=== PATIENT | female | born 1940 | race African-American/Black ===

== ENCOUNTER 2019-07-25 19:10 | Inpatient (IN) | payer OTHER, BC ==
--- NOTE | 2019-07-25 19:35 | PDOC ---
Attending Attestation - Resident Resident Name: Shoshana Urbano - ED Attending Attestation I have performed the following: I have examined & evaluated the patient, The case was reviewed & discussed with the resident, I agree w/resident's findings & plan - HPI HPI: 07/25/19 23:07 see resident hpi - Physicial Exam PE: 07/25/19 23:07 agree with resident exam - Medical Decision Making 07/25/19 23:07 78-year-old female status post mechanical fall with right ankle pain, x-rays consistent with trimalleolar fracture Call placed to orthopedics who will see the patient in consultation Closed reduction attempted with splinting Patient neurovascularly intact prior to and post reduction We will admit to medical service due to anticoagulation status, difficulty with crutch ambulation
[2019-07-25] MEDS ORDERED: ACETAMINOPHEN 500 MG TABLET (FP) PO ONE (19:44)
--- NOTE | 2019-07-25 19:44 | PDOC ---
History of Present Illness - General Chief Complaint: Injury Stated Complaint: INJURY Time Seen by Provider: 07/25/19 19:29 History Source: Patient Exam Limitations: No Limitations - History of Present Illness Initial Comments: 07/25/19 19:53 78y F with PMH of Afib (Xarelto), HTN, CHF presenting to ED with complaints of R ankle pain after slipping down the the last step of her stairs. Patient states she was stepping on to the mat from the last step and there was a flyer on the mat and she slipped. She did not hit her head or lose consciousness but says she felt her R ankle twist. Family called EMS. She endorses pain and swelling in the R ankle. Denies numbness/tingling, weakness, knee pain, hip pain , back pain, chest pain, sob. PMD: Yovani PMH: see hpi Meds: see med rec Allergies: nkda Past History - Past Medical History Allergies/Adverse Reactions: Allergies Allergy/AdvReac Type Severity Reaction Status Date / Time No Known Allergies Allergy Verified 07/25/19 19:30 Home Medications: Ambulatory Orders Advair 250-50 Diskus 250 IH BID 07/26/19 Chlorthalidone 25 mg PO DAILY 07/26/19 Latanoprost 0.005% Eye Drops [Xalatan 0.005% Eye Drops -] 0.005 OS 07/26/19 Mirabegron [Myrbetriq] 50 mg PO DAILY 07/26/19 Nebivolol [Bystolic -] 5 mg PO DAILY 07/26/19 Pravastatin Sodium [Pravachol -] 40 mg PO DAILY 07/26/19 Risedronate Sodium 35 mg PO WEEKLY 07/26/19 Rivaroxaban [Xarelto] 15 mg PO DAILY 07/26/19 Tiotropium [place] [Spiriva] 18 mcg IH DAILY 07/26/19 Trospium Chloride 20 mg BID 07/26/19 Verapamil HCl ER [Calan Sr -] 240 mg PO DAILY 07/26/19 - Psycho Social/Smoking Cessation Hx Smoking History: Never smoked Have you smoked in the past 12 months: No Information on smoking cessation initiated: No Hx Alcohol Use: No Drug/Substance Use Hx: No Review of Systems - Review of Systems Constitutional: No: Symptoms Reported HEENTM: No: Symptoms Reported Respiratory: No: Symptoms reported Cardiac (ROS): No: Symptoms Reported ABD/GI: No: Symptoms Reported : No: Symptoms Reported Musculoskeletal: Yes: See HPI Integumentary: Yes: See HPI Neurological: No: Symptoms reported *Physical Exam - Vital Signs Last Vital Signs Temp Pulse Resp BP Pulse Ox 98.8 F 91 H 20 169/79 97 07/25/19 19:29 07/25/19 19:29 07/25/19 19:29 07/25/19 19:29 07/25/19 19:29 - Physical Exam General Appearance: Yes: Appropriately Dressed, Obese. No: Apparent Distress HEENT: positive: EOMI, HUBER, Normal ENT Inspection Neck: positive: Trachea midline, Supple. negative: Lymphadenopathy (R), Lymphadenopathy (L) Respiratory/Chest: positive: Lungs Clear, Normal Breath Sounds. negative: Crackles, Rales, Rhonchi, Stridor, Wheezing Cardiovascular: positive: Regular Rate, S1, S2, Irregular. negative: Edema, JVD , Murmur Vascular Pulses: Dorsalis-Pedis (R): 2+, Doralis-Pedis (L): 2+ Gastrointestinal/Abdominal: positive: Normal Bowel Sounds, Soft. negative: Tender Musculoskeletal: positive: Other (R medial ankle swelling/bruising, ttp medially ). negative: CVA Tenderness Extremity: positive: Normal Capillary Refill, Pelvis Stable, Swelling (R ankle) . negative: Calf Tenderness, Erythema Integumentary: positive: Normal Color, Dry, Warm Neurologic: positive: project director II-XII NML intact, Fully Oriented, Alert, Normal Mood/ Affect, Normal Response, Motor Strength 5/5 Procedures - Splinting Splint Location: Right: Ankle Pre-Proc Neuro Vasc Exam: normal Hand-Made Type: orthoglass Splint Type: Yes: Posterior, Short Leg Post-Proc Neuro Vasc Exam: normal Lito Bandage: yes Post splint xray: Yes (pending) ED Treatment Course - LABORATORY CBC & Chemistry Diagram: 07/25/19 20:55 07/25/19 20:55 Medical Decision Making - Medical Decision Making 07/25/19 21:47 78y F on Xarelto presenting for ankle pain after slipping. vitals; wnl ddx likely fracture of ankle v. sprain v. hematoma will obtain xray. Tylenol for pain. xray shows trimalleolar fracture. discussed case with ortho, if able to use crutches, can f/u outpt. if admitted, recommend hold on Xarelto pt lives alone, on Xarelto, has stairs in the home, difficulty with crutches. will admit. splint placed, see procedure note. Discharge - Discharge Information Problems reviewed: Yes Clinical Impression/Diagnosis: Trimalleolar fracture of ankle, closed Qualifiers: Encounter type: initial encounter Laterality: right Qualified Code(s): S82.851A - Displaced trimalleolar fracture of right lower leg, initial encounter for closed fracture Condition: Good - Admission Yes - Follow up/Referral - Patient Discharge Instructions - Post Discharge Activity
[2019-07-25] MEDS ORDERED: ACETAMINOPHEN 325 MG TABLET (FP) ONE (20:02)
[2019-07-25] MEDS ORDERED: morphine CARPU-JECT 4 MG/1 ML DISP.SYRIN IVPUSH ONE (20:28)
[2019-07-25] MEDS ORDERED: morphine SULFATE 4 MG/ML VIAL ONE (20:33)
[2019-07-25 21:12] LABS: EOS % 0.3 % (0-4.5); HEMATOCRIT 32.8 % (32.4-45.2); LYMPH % 17.5 % (8-40); MCH 24.5 pg (25.7-33.7); MCHC 33.4 g/dl (32.0-36.0); MEAN CELL VOLUME 73.3 fl (80-96); MEAN PLT VOLUME 7.9 fl (7.5-11.1); MONO % 9.5 % (3.8-10.2); NEUT % 71.7 % (42.8-82.8); PLATELET COUNT 264 K/MM3 (134-434); RBC 4.47 M/mm3 (3.60-5.2); RDW 14.6 % (11.6-15.6); WHITE BLOOD COUNT 8.1 K/mm3 (4.0-10.0)
[2019-07-25 21:23] LABS: INR 2.34 (0.83-1.09); PROTHROMBIN TIME (PATIENT) 27.9 SEC (9.7-13.0)
[2019-07-25 21:26] LABS: ACTIVATED PTT 41.2 SECONDS (25.2-36.5)
[2019-07-25 21:49] LABS: BILIRUBIN,TOTAL 0.7 mg/dL (0.2-1); BLOOD UREA NITROGEN 12.1 mg/dL (7-18); CALCIUM 10.3 mg/dL (8.5-10.1); CREATININE 1.1 mg/dL (0.55-1.3); POTASSIUM 3.7 mmol/L (3.5-5.1); TOT PROT 8.5 g/dl (6.4-8.2)
--- NOTE | 2019-07-25 23:34 | PN ---
Teaching Attending Note Name of Resident: Elmer Gates ATTENDING PHYSICIAN STATEMENT I saw and evaluated the patient. I reviewed the resident's note and discussed the case with the resident. I agree with the resident's findings and plan as documented. SUBJECTIVE: 78-year-old woman status post mechanical fall with right ankle pain. She reported slipping and landing on her right foot and back. Denied any pain to back. No head trauma, no LOC. X-ray performed of right ankle and showed triimalleolar fracture. Orthopedics was consulted from ER. Closed reduction was performed in emergency room with splinting. Patient was noted to be neurovascular intact prior and post reduction. OBJECTIVE: Last Vital Signs Temp Pulse Resp BP Pulse Ox 98.8 F 87 18 155/78 95 07/25/19 19:29 07/25/19 23:17 07/25/19 23:17 07/25/19 23:17 07/25/19 23:17 GENERAL: Well developed, well nourished. Awake and alert. No acute distress. HEENT: Normocephalic, atraumatic. PERRLA, EOMI. No conjunctival pallor. Sclera are non- icteric. Moist mucous membranes. Oropharynx is clear. NECK: Supple. Full ROM. No JVD. Carotid pulses 2+ and symmetric, without bruits. No thyromegaly. No lymphadenopathy. CARDIOVASCULAR: Regular rate and rhythm. No murmurs, rubs, or gallops. Distal pulses are 2+ and symmetric. PULMONARY: No evidence of respiratory distress. Lungs clear to auscultation bilaterally. No wheezing, rales or rhonchi. ABDOMINAL: Soft. Non-tender. Non-distended. No rebound or guarding. No organomegaly. Normoactive bowel sounds. MUSCULOSKELETAL Normal range of motion at all joints. No bony deformities or tenderness. No CVA tenderness. EXTREMITIES: Right lower extremity was wrapped, and mobilized. Good sensation to toes. Toes are warm to touch and good color. SKIN: Warm and dry. Normal capillary refill. No rashes. No jaundice. PSYCHIATRIC: Cooperative. Good eye contact. Appropriate mood and affect. Abnormal Lab Results 07/25/19 07/25/19 07/25/19 20:55 20:55 20:55 MCV 73.3 L MCH 24.5 L PT with INR 27.90 H INR 2.34 H PTT (Actin FS) 41.2 H Random Glucose 123 H Calcium 10.3 H Alkaline Phosphatase 150 H Total Protein 8.5 H Imaging reviewed ASSESSMENT AND PLAN: #Rt ankle triimalleolar fracture Admit to [facility] Immobilization Morphine IV for pain control PT and PTT and type and screen Orthopedics consult N.p.o. Periodic assessment of right foot pulses and sensation DVT prophylaxis with heparin subcu #Hypertensionuncontrolled Continue home dose of verapamil 240 mg p.o. daily Continue home dose Bystolic 5 mg p.o. daily Continue home dose chlorthalidone 25 mg p.o. daily #COPDcontrolled Continue home dose Spiriva daily #Dyslipidemia Continue home dose pravastatin 40 mg p.o. daily
[2019-07-26] MEDS ORDERED: SODIUM CHLORIDE 1,000 ML IV SCH (00:15)
--- NOTE | 2019-07-26 00:15 | PN ---
Physical Exam: SUBJECTIVE: Patient seen and examined OBJECTIVE: Vital Signs Period Temp Pulse Resp BP Sys/[place] Pulse Ox Last 24 Hr 98.8 F 87-91 18-20 155-169/78-79 95-97 GENERAL: The patient is awake, alert, and fully oriented, in no acute distress. HEAD: Normal with no signs of trauma. EYES: PERRL, extraocular movements intact, sclera anicteric, conjunctiva clear. No ptosis. ENT: Ears normal, nares patent, oropharynx clear without exudates, moist mucous membranes. NECK: Trachea midline, full range of motion, supple. LUNGS: Breath sounds equal, clear to auscultation bilaterally, no wheezes, no crackles, no accessory muscle use. HEART: Regular rate and rhythm, S1, S2 without murmur, rub or gallop. ABDOMEN: Soft, nontender, nondistended, normoactive bowel sounds, no guarding, no rebound, no hepatosplenomegaly, no masses. EXTREMITIES: 2+ pulses, warm, well-perfused, no edema. NEUROLOGICAL: Cranial nerves II through XII grossly intact. Normal speech, gait not observed. PSYCH: Normal mood, normal affect. SKIN: Warm, dry, normal turgor, no rashes or lesions noted Laboratory Results - last 24 hr 07/25/19 07/25/19 07/25/19 20:55 20:55 20:55 WBC 8.1 RBC 4.47 Hgb 11.0 Hct 32.8 MCV 73.3 L MCH 24.5 L MCHC 33.4 RDW 14.6 Plt Count 264 MPV 7.9 Absolute Neuts (auto) 5.8 Neutrophils % 71.7 Lymphocytes % 17.5 Monocytes % 9.5 Eosinophils % 0.3 Basophils % 1.0 Nucleated RBC % 0 PT with INR 27.90 H INR 2.34 H PTT (Actin FS) 41.2 H Sodium 138 Potassium 3.7 Chloride 98 Carbon Dioxide 29 Anion Gap 10 BUN 12.1 Creatinine 1.1 Est GFR (CKD-EPI)AfAm 56.08 Est GFR (CKD-EPI)NonAf 48.39 Random Glucose 123 H Calcium 10.3 H Total Bilirubin 0.7 AST 29 ALT 25 Alkaline Phosphatase 150 H Total Protein 8.5 H Albumin 4.0 Blood Type Antibody Screen 07/25/19 20:55 WBC RBC Hgb Hct MCV MCH MCHC RDW Plt Count MPV Absolute Neuts (auto) Neutrophils % Lymphocytes % Monocytes % Eosinophils % Basophils % Nucleated RBC % PT with INR INR PTT (Actin FS) Sodium Potassium Chloride Carbon Dioxide Anion Gap BUN Creatinine Est GFR (CKD-EPI)AfAm Est GFR (CKD-EPI)NonAf Random Glucose Calcium Total Bilirubin AST ALT Alkaline Phosphatase Total Protein Albumin Blood Type O POSITIVE Antibody Screen Negative Active Medications Generic Name Dose Route Start Last Admin Trade Name Freq PRN Reason Stop Dose Admin Sodium Chloride 1,000 mls @ 50 mls/hr 07/26/19 00:15 Normal Saline - IV 07/27/19 00:02 ASDIR [facility] ASSESSMENT/PLAN: ATTENDING PHYSICIAN STATEMENT I saw and evaluated the patient. I reviewed the resident's note and discussed the case with the resident. I agree with the resident's findings and plan as documented. SUBJECTIVE: OBJECTIVE: ASSESSMENT AND PLAN:
--- NOTE | 2019-07-26 00:28 | HP ---
CHIEF COMPLAINT: Fall PCP: Dr. Pina HISTORY OF PRESENT ILLNESS: 78 y/o F, pmh of Afib on Xeralto, HTN, HLD, CVA in 2004, CHF(pt denies), lung disease(pt does not know the dx), ectopic , cataract surgery presents s /p fall. 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 She denies hitting her head or LOC. Pt has had 2 falls in the past, 10 years ago, which she states were minor falls. Pt said she doesn't have any issues with balance or dizziness. She follows up with her telecommunicator Dr. Diaz, her cake froster Dr Carrillo, and her PCP Dr. Gant. Pt denies f/c/n/v/d, sob, chest pain, changes in vision, numbness or tingling, dizziness, abdominal pain. ER course was notable for: (1)X ray- Trimalleolar fx (2)Ortho consulted- suggested out pt f/u (3)Leg immobilized Recent Travel: denies PAST MEDICAL HISTORY: Afib on Xeralto, HTN, HLD, CVA in 2004, CHF(pt denies), lung disease(pt does not know the dx), PAST SURGICAL HISTORY: ectopic , cataract surgery Social History: Smoking:denies Alcohol:denies Drugs: denies Allergies No Known Allergies Allergy (Verified 07/25/19 19:30) HOME MEDICATIONS: Home Medications Medication Instructions Recorded Chlorthalidone 25 DAILY 07/26/19 Mirabegron [Myrbetriq] DAILY 07/26/19 Nebivolol [Bystolic -] DAILY 07/26/19 Pravastatin Sodium [Pravachol -] DAILY 07/26/19 Risedronate Sodium DAILY 07/26/19 Rivaroxaban [Xarelto] DAILY 07/26/19 Tiotropium [place] [Spiriva] DAILY 07/26/19 Trospium Chloride DAILY 07/26/19 Verapamil HCl ER [Calan Sr -] DAILY 07/26/19 REVIEW OF SYSTEMS CONSTITUTIONAL: Absent: fever, chills, diaphoresis, generalized weakness, HEENT: Absent: visual changes CARDIOVASCULAR: Absent: chest pain, syncope, palpitations, lightheadedness, RESPIRATORY: Absent: cough, shortness of breath, dyspnea with exertion, orthopnea, wheezing, GASTROINTESTINAL: Absent: abdominal pain, abdominal distension, nausea, vomiting, diarrhea, GENITOURINARY: Absent: dysuria, frequency, urgency, MUSCULOSKELETAL: Absent: back pain, neck pain ENDOCRINE: Absent: unexplained weight gain, unexplained weight loss NEUROLOGIC: Absent: headache, focal weakness or paresthesias, dizziness, bladder or bowel incontinence PHYSICAL EXAMINATION Vital Signs - 24 hr 07/25/19 07/25/19 19:29 23:17 Temperature 98.8 F Pulse Rate 91 H Pulse Rate [ 87 Right] Respiratory 20 18 Rate Blood Pressure 169/79 Blood Pressure 155/78 [Right Arm] O2 Sat by Pulse 97 95 Oximetry (%) GENERAL: Awake, alert, and fully oriented, in no acute distress. EYES: Pupils equal, round and reactive to light, extraocular movements intact, EARS, NOSE, THROAT: oropharynx clear without exudates. Moist mucous membranes. NECK: Normal range of motion, supple LUNGS: Breath sounds equal. No wheezes, and Mild-mod crackles appreciated b/l . HEART: Regular rate and irregular rhythm, normal S1 and S2 without murmur, rub or gallop. ABDOMEN: Soft, nontender, not distended, normoactive bowel sounds, no guarding, no rebound, no masses. MUSCULOSKELETAL: Normal range of motion at all joints. Right LE immobilized UPPER EXTREMITIES: 2+ pulses, warm, well-perfused. No cyanosis. No peripheral edema. LOWER EXTREMITIES: 2+ pulses, warm, well-perfused. No peripheral edema. RLE placed in cast- unable to examine. Sensation intact. NEUROLOGICAL: Cranial nerves II-XII intact. PSYCHIATRIC: Cooperative. Good eye contact. Appropriate mood and affect. Laboratory Results - last 24 hr CBC,CMP WBC 8.1 K/mm3 (4.0-10.0) 07/25/19 20:55 RBC 4.47 M/mm3 (3.60-5.2) 07/25/19 20:55 Hgb 11.0 GM/dL (10.7-15.3) 07/25/19 20:55 Hct 32.8 % (32.4-45.2) 07/25/19 20:55 MCV 73.3 fl (80-96) L 07/25/19 20:55 MCH 24.5 pg (25.7-33.7) L 07/25/19 20:55 MCHC 33.4 g/dl (32.0-36.0) 07/25/19 20:55 RDW 14.6 % (11.6-15.6) 07/25/19 20:55 Plt Count 264 K/MM3 (134-434) 07/25/19 20:55 MPV 7.9 fl (7.5-11.1) 07/25/19 20:55 Absolute Neuts (auto) 5.8 K/mm3 (1.5-8.0) 07/25/19 20:55 Neutrophils % 71.7 % (42.8-82.8) 07/25/19 20:55 Lymphocytes % 17.5 % (8-40) 07/25/19 20:55 Monocytes % 9.5 % (3.8-10.2) 07/25/19 20:55 Eosinophils % 0.3 % (0-4.5) 07/25/19 20:55 Basophils % 1.0 % (0-2.0) 07/25/19 20:55 Nucleated RBC % 0 % (0-0) 07/25/19 20:55 Sodium 138 mmol/L (136-145) 07/25/19 20:55 Potassium 3.7 mmol/L (3.5-5.1) 07/25/19 20:55 Chloride 98 mmol/L (98-107) 07/25/19 20:55 Carbon Dioxide 29 mmol/L (21-32) 07/25/19 20:55 Anion Gap 10 MMOL/L (8-16) 07/25/19 20:55 BUN 12.1 mg/dL (7-18) 07/25/19 20:55 Creatinine 1.1 mg/dL (0.55-1.3) 07/25/19 20:55 Est GFR (CKD-EPI)AfAm 56.08 07/25/19 20:55 Est GFR (CKD-EPI)NonAf 48.39 07/25/19 20:55 Random Glucose 123 mg/dL (74-106) H 07/25/19 20:55 Calcium 10.3 mg/dL (8.5-10.1) H 07/25/19 20:55 Total Bilirubin 0.7 mg/dL (0.2-1) 07/25/19 20:55 AST 29 U/L (15-37) 07/25/19 20:55 ALT 25 U/L (13-61) 07/25/19 20:55 Alkaline Phosphatase 150 U/L (45-117) H 07/25/19 20:55 Total Protein 8.5 g/dl (6.4-8.2) H 07/25/19 20:55 Albumin 4.0 g/dl (3.4-5.0) 07/25/19 20:55 ASSESSMENT/PLAN: 78 y/o F, pmh of Afib on Xeralto, HTN, HLD, CVA in 2004, CHF(pt denies), lung disease(pt does not know the dx), ectopic , cataract surgery presents s /p fall with right leg pain 10/25 #Right ankle triimalleolar fracture X-ray evident for this finding Pt admitted to [facility] Immobilization- leg in cast Orthopedics consult- recom out pt management. Hold Xarelto. Morphine IV for pain control-ordered PT and PTT and type and screen- ordered Regular assessment of right foot pulses and sensation Pt NPO after Midnight #A-fib Hold xarelto consider cardio consult #HTN cont home meds-verapamil, bystolic, chlorthalidone BP now 169/79 #CVA Hold xarelto #CHF consider ECHO in am Per pt, last ECHO was normal #Lung disease consider Xray contact Dr. Carrillo- cake froster- [facility] #DVT ppx heparin sq FEN IVF- NS at 83 monitor lytes NPO after Midnight except for PO meds Dispo: f/u labs, dvt ppx, pain control, Hold xarelto Visit type - Emergency Visit Emergency Visit: Yes ED Registration Date: 07/25/19 Care time: The patient presented to the Emergency Department on the above date and was hospitalized for further evaluation of their emergent condition. - New Patient This patient is new to me today: Yes Date on this admission: 07/29/19 - Critical Care Critical Care patient: No ATTENDING PHYSICIAN STATEMENT I saw and evaluated the patient. I reviewed the resident's note and discussed the case with the resident. I agree with the resident's findings and plan as documented. SUBJECTIVE: OBJECTIVE: ASSESSMENT AND PLAN:
[2019-07-26] MEDS ORDERED: MORPHINE SULFATE 2 MG/ML VIAL IVPUSH PRN ×3 (00:29→10:23)
[2019-07-26] MEDS ORDERED: HEPARIN NA (PORCINE) 5,000 UNITS/ML 1ML VIAL SQ SCH (06:00)
[2019-07-26 07:34] LABS: HEMATOCRIT 31.4 % (32.4-45.2); HEMOGLOBIN 10.2 GM/dL (10.7-15.3); MCH 23.5 pg (25.7-33.7); MCHC 32.5 g/dl (32.0-36.0); MEAN CELL VOLUME 72.3 fl (80-96); PLATELET COUNT 247 K/MM3 (134-434); RBC 4.35 M/mm3 (3.60-5.2); RDW 14.5 % (11.6-15.6); WHITE BLOOD COUNT 6.8 K/mm3 (4.0-10.0)
[2019-07-26 07:55] LABS: INR 1.75 (0.83-1.09); PROTHROMBIN TIME (PATIENT) 20.8 SEC (9.7-13.0)
[2019-07-26 07:57] LABS: ACTIVATED PTT 38.3 SECONDS (25.2-36.5)
[2019-07-26 08:00] LABS: BLOOD UREA NITROGEN 10.3 mg/dL (7-18); CALCIUM 9.7 mg/dL (8.5-10.1); POTASSIUM 3.4 mmol/L (3.5-5.1)
[2019-07-26] MEDS ORDERED: PT OWN MED DRAWER 7, Y5N ONE (09:02)
[2019-07-26] MEDS: CHLORTHALIDONE 25 MG TABLET PO SCH (09:07)
[2019-07-26] MEDS: VERAPAMIL HCL 240 MG E.R. TABLET PO SCH (09:07)
[2019-07-26] MEDS: TIOTROPIUM BROMIDE 2.5 MCG (SPIRIVA) RESPIMAT INHALER IH SCH (09:07)
[2019-07-26] MEDS: NEBIVOLOL 5 MG TABLET (FP) PO SCH (09:07)
[2019-07-26] MEDS ORDERED: ACETAMINOPHEN 1000 MG/100 ML VIAL (NON FORMULARY) IVPB ONE ×2 (10:23→17:56)
[2019-07-26] MEDS ORDERED: POTASSIUM CHLORIDE TABS 20 MEQ TABLET.ER (FP) PO ONE (10:25)
--- NOTE | 2019-07-26 10:33 | PN ---
Progress Note (short form) - Note Progress Note: Subjective: has pain in R foot. No fever or chills. No SOB . denies LOC at time of event. took xarelto yesterday Vital Signs: Last Vital Signs Temp Pulse Resp BP Pulse Ox 98.2 F 94 H 14 141/81 94 L 07/26/19 07:40 07/26/19 07:40 07/26/19 07:40 07/26/19 07:40 07/25/19 23:56 Laboratory Results - last 24 hr 07/25/19 07/25/19 07/25/19 06:42 20:55 20:55 WBC 8.1 RBC 4.47 Hgb 11.0 Hct 32.8 MCV 73.3 L MCH 24.5 L MCHC 33.4 RDW 14.6 Plt Count 264 MPV 7.9 Absolute Neuts (auto) 5.8 Neutrophils % 71.7 Lymphocytes % 17.5 Monocytes % 9.5 Eosinophils % 0.3 Basophils % 1.0 Nucleated RBC % 0 PT with INR 27.90 H INR 2.34 H PTT (Actin FS) 41.2 H Sodium Potassium Chloride Carbon Dioxide Anion Gap BUN Creatinine Est GFR (CKD-EPI)AfAm Est GFR (CKD-EPI)NonAf Random Glucose Calcium Total Bilirubin AST ALT Alkaline Phosphatase Total Protein Albumin Blood Type O POSITIVE Antibody Screen 07/25/19 07/25/19 07/26/19 20:55 20:55 06:42 WBC 6.8 RBC 4.35 Hgb 10.2 L Hct 31.4 L MCV 72.3 L MCH 23.5 L MCHC 32.5 RDW 14.5 Plt Count 247 MPV 8.0 Absolute Neuts (auto) Neutrophils % Lymphocytes % Monocytes % Eosinophils % Basophils % Nucleated RBC % PT with INR INR PTT (Actin FS) Sodium 138 Potassium 3.7 Chloride 98 Carbon Dioxide 29 Anion Gap 10 BUN 12.1 Creatinine 1.1 Est GFR (CKD-EPI)AfAm 56.08 Est GFR (CKD-EPI)NonAf 48.39 Random Glucose 123 H Calcium 10.3 H Total Bilirubin 0.7 AST 29 ALT 25 Alkaline Phosphatase 150 H Total Protein 8.5 H Albumin 4.0 Blood Type O POSITIVE Antibody Screen Negative 07/26/19 07/26/19 06:42 06:42 WBC RBC Hgb Hct MCV MCH MCHC RDW Plt Count MPV Absolute Neuts (auto) Neutrophils % Lymphocytes % Monocytes % Eosinophils % Basophils % Nucleated RBC % PT with INR 20.80 H INR 1.75 H PTT (Actin FS) 38.3 H Sodium 138 Potassium 3.4 L Chloride 100 Carbon Dioxide 30 Anion Gap 8 BUN 10.3 Creatinine 1.0 Est GFR (CKD-EPI)AfAm 62.93 Est GFR (CKD-EPI)NonAf 54.30 Random Glucose 125 H Calcium 9.7 Total Bilirubin AST ALT Alkaline Phosphatase 139 H Total Protein Albumin Blood Type Antibody Screen Physical Exam: NAD , awake, alert and cooperative MMM, no facial droop LUngs: bibasilar crackles CV: regularly irreg . 2/6 SM at base ABd: obese, soft, NT, ND , NL BS Ext : R ankle and leg in a cast. nl sensation in R toes and nl movement of toes. DP 2+ . LLE with no edema or erythema Imaging: xrays reviewed. EKG : sinus, Q waves in inferrior leads, non specific TWI. qtc 455, L axis. No prior to compare Assessment/Plan: 78 y/o lady with h/o A fib , ILD, HTN, CVA, HLP, who presented a fter a mechanical fall and was found to have acute R distal Tib/Fib Fx . 1- Mechanical fall 2- Acute R distal Tib/Fib Fx. 3- H/o HTN 4- h/o ILD 5- Elevated R hemidiaphragm 6- H/o A fib 7- Elevated ALk phos; likely due to Fx Plan : - seen by ortho, note is pending. per RN patient will need sx but being delayed due to being on xarelto - Last dose ot xarelto 12:30 pm yesterday. she will be safe to have sx after 48 hrs of last dose. so tomorrow afternoon - Stefan-OP risk stratification: sx is not urgent. Patient has h/o A fib, but rate is controlled and she is in sinus now. she has no CP or SOB . she has no signs of acute ischemia on EKG. No signs of ACS. she has stable lung disease .She will be at low risk for stefan-op cardiac complications for this intermediate risk surgery . No further cardiac work up is indicated before the sx. - dc IVF - NPO after MN - cont inhalers - f/u with pulm as out pt for elevated hemidiaphragm and ILD - cont corge, bystolic and chlorthalidone . hold diuretics tomorrow - repeat alk phos, now and as out pt - add oxycodone - bowel regimen - SCDs on L . - SQ heparin today I confirmed her meds and updated in EMR Visit type - Emergency Visit Emergency Visit: Yes ED Registration Date: 07/25/19 Care time: The patient presented to the Emergency Department on the above date and was hospitalized for further evaluation of their emergent condition. - New Patient This patient is new to me today: No - Critical Care Critical Care patient: No
[2019-07-26] MEDS: DOCUSATE SODIUM 100 MG CAPSULE (FP) PO SCH ×2 (10:50→21:22)
[2019-07-26] MEDS: HEPARIN NA (PORCINE) 5,000 UNITS/ML 1ML VIAL SQ SCH ×2 (13:16→21:22)
--- NOTE | 2019-07-26 16:25 | CON.ORTH ---
Consult Reason for Consultation:: right ankle fx - Alcohol/Substance Use Hx Alcohol Use: No - Smoking History Smoking history: Never smoked Have you smoked in the past 12 months: No Home Medications - Allergies Allergies/Adverse Reactions: Allergies Allergy/AdvReac Type Severity Reaction Status Date / Time No Known Allergies Allergy Verified 07/25/19 19:30 - Home Medications Home Medications: Ambulatory Orders Advair 250-50 Diskus 250 IH BID 07/26/19 Chlorthalidone 25 mg PO DAILY 07/26/19 Latanoprost 0.005% Eye Drops [Xalatan 0.005% Eye Drops -] 0.005 drop OU DAILY Mirabegron [Myrbetriq] 50 mg PO DAILY 07/26/19 Nebivolol [Bystolic -] 5 mg PO DAILY 07/26/19 Pravastatin Sodium [Pravachol -] 40 mg PO DAILY 07/26/19 Risedronate Sodium 35 mg PO WEEKLY 07/26/19 Rivaroxaban [Xarelto] 15 mg PO DAILY 07/26/19 Tiotropium [place] [Spiriva] 18 mcg IH DAILY 07/26/19 Trospium Chloride 20 mg BID 07/26/19 Verapamil HCl ER [Calan Sr -] 240 mg PO DAILY 07/26/19 Physical Exam for Ortho Vital Signs: Vital Signs Temperature 98.2 F 07/26/19 14:13 Pulse Rate 76 07/26/19 14:13 Respiratory Rate 18 07/26/19 14:13 Blood Pressure 122/76 07/26/19 14:13 O2 Sat by Pulse Oximetry (%) 95 07/26/19 09:00 Labs: CBC, BMP 07/26/19 06:42 07/26/19 06:42 INR, PTT INR 1.75 (0.83-1.09) H 07/26/19 06:42 - Lower Extremity Ankle: Yes: Right, Limited ROM, Pain, Swelling, Tenderness, Other (nvi) Imaging - Results X-ray: Image Reviewed Assessment/Plan 78 y/o F, pmh of Afib on Xeralto, HTN, HLD, CVA in 2004, CHF(pt denies), lung disease(pt does not know the dx), ectopic , cataract surgery presents s /p fall. 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 She denies hitting her head or LOC. Denies any numbness or tingling. a/p right ankle trimall fx Risks and benefits were d/w pt in detail OR for right ankle ORIF Tentatively for Saturday/Saturday surgical clearance NPO after midnight d/w Dr. Nelson
[2019-07-26] MEDS: oxyCODONE HCL 5 MG TABLET PO PRN (16:54)
[2019-07-26] MEDS ORDERED: RIVAROXABAN 15 MG TABLET PO SCH (18:00)
[2019-07-26] MEDS: ATORVASTATIN CA 10 MG TABLET (FP) PO SCH (21:22)
[2019-07-26] MEDS: FLUTICASONE/SALMETEROL 100 MCG/50 MCG DISKUS IH SCH (21:45)
[2019-07-27 07:48] LABS: INR 1.31 (0.83-1.09); PROTHROMBIN TIME (PATIENT) 15.5 SEC (9.7-13.0)
[2019-07-27] MEDS: oxyCODONE HCL 5 MG TABLET PO PRN ×2 (07:48→22:07)
--- NOTE | 2019-07-27 08:26 | PN ---
Progress Note (short form) - Note Progress Note: Ortho Pt seen and examined s/p right ankle fx Selected Entries 07/27/19 05:48 Temperature 98.7 F Pulse Rate 81 Respiratory 21 H Rate Blood Pressure 117/65 Laboratory Tests 07/27/19 06:45 PT with INR 15.50 H INR 1.31 H splint intact, nvi a/p Risks and benefits were d/w pt in detail OR tomorrow for right ankle orif NPO after midnight hold heparin after 10 pm d/w Dr. Nelson
--- NOTE | 2019-07-27 10:18 | EKG ---
Test Reason : Blood Pressure : / mmHG Vent. Rate : 093 BPM Atrial Rate : 093 BPM P-R Int : 154 ms QRS Dur : 100 ms QT Int : 366 ms P-R-T Axes : 018 -09 -10 degrees QTc Int : 455 ms SINUS RHYTHM WITH PREMATURE SUPRAVENTRICULAR COMPLEXES AND WITH OCCASIONAL PREMATURE VENTRICULAR COMPLEXES INFERIOR INFARCT , AGE UNDETERMINED ABNORMAL ECG WHEN COMPARED WITH ECG OF 11-DEC-2008 22:51, PREMATURE VENTRICULAR COMPLEXES ARE NOW PRESENT PREMATURE SUPRAVENTRICULAR COMPLEXES ARE NOW PRESENT VENT. RATE HAS INCREASED T WAVE VARIATION Confirmed by KRYSTLE ONEAL MD ([id number]) on 07/27/2019 10:18:03 AM Referred By: Confirmed By:KRYSTLE ONEAL MD
[2019-07-27] MEDS: NEBIVOLOL 5 MG TABLET (FP) PO SCH (10:24)
[2019-07-27] MEDS: FLUTICASONE/SALMETEROL 100 MCG/50 MCG DISKUS IH SCH ×2 (10:24→22:10)
[2019-07-27] MEDS: VERAPAMIL HCL 240 MG E.R. TABLET PO SCH (10:24)
[2019-07-27] MEDS: CHLORTHALIDONE 25 MG TABLET PO SCH (10:25)
[2019-07-27] MEDS: DOCUSATE SODIUM 100 MG CAPSULE (FP) PO SCH ×2 (10:25→22:09)
[2019-07-27] MEDS: TIOTROPIUM BROMIDE 2.5 MCG (SPIRIVA) RESPIMAT INHALER IH SCH (10:26)
[2019-07-27] MEDS ORDERED: HEPARIN NA (PORCINE) 5,000 UNITS/ML 1ML VIAL SQ ONE ×2 (14:30→22:00)
[2019-07-27] MEDS ORDERED: ACETAMINOPHEN 1000 MG/100 ML VIAL (NON FORMULARY) IVPB ONE (14:46)
--- NOTE | 2019-07-27 15:20 | PN ---
Teaching Attending Note Name of Resident: Leanne Bethea ATTENDING PHYSICIAN STATEMENT I saw and evaluated the patient. I reviewed the resident's note and discussed the case with the resident. I agree with the resident's findings and plan as documented. SUBJECTIVE: No fever or chills. R ankle pain is controlled with oxy and morphine OBJECTIVE: NAD , awake, alert and cooperative MMM, no facial droop LUngs: CTAB today CV: regularly irreg . 2/6 SM at base ABd: obese, soft, NT, ND , NL BS Ext: R ankle and leg in a cast. nl sensation in R toes and nl movement of toes. DP 2+ . LLE with no edema or erythema Assessment/Plan: 78 y/o lady with h/o A fib , ILD, HTN, CVA, HLP, who presented a fter a mechanical fall and was found to have acute R distal Tib/Fib Fx . 1- Mechanical fall 2- Acute R distal Tib/Fib Fx. 3- H/o HTN 4- h/o ILD 5- Elevated R hemidiaphragm 6- H/o A fib 7- Elevated ALk phos; likely due to Fx Plan : - To OR tomorrow - Pre-Op risk stratification per yesterday's note - NPo after MN - cont morphine and oxy - heaprin sq today - INR in am - xarelto is out of system by now - cont other home meds - bowel regimen - f/u with pulm as out pt for elevated hemidiaphragm and ILD Scds on L side
--- NOTE | 2019-07-27 16:53 | PN ---
Physical Exam: SUBJECTIVE: Patient seen and examined 78 y/o F, pmh of Afib on Xeralto, HTN, HLD, CVA in 2004, CHF(pt denies), lung disease(pt does not know the dx), ectopic , cataract surgery presents s /p fall admitted for right ankle fx. Pt is asymptomatic, afebrile, w/o any issues or c/o. Pt has moderate pain on her leg but otherwise stable. No overnight events. Denies f/c/n/v, chest pain, sob. OBJECTIVE: Vital Signs Last Vital Signs Temp Pulse Resp BP Pulse Ox 98.1 F 74 20 117/68 96 07/27/19 14:33 07/27/19 14:33 07/27/19 10:00 07/27/19 14:33 07/27/19 09:00 GENERAL: Awake, alert, and fully oriented, in no acute distress. EYES: Pupils equal, round and reactive to light, extraocular movements intact, EARS, NOSE, THROAT: oropharynx clear without exudates. Moist mucous membranes. NECK: Normal range of motion, supple LUNGS: Breath sounds equal. No wheezes, and Mild-mod crackles appreciated b/l . HEART: Regular rate and irregular rhythm, normal S1 and S2 without murmur, rub or gallop. ABDOMEN: Soft, nontender, not distended, normoactive bowel sounds, no guarding, no rebound, no masses. MUSCULOSKELETAL: Normal range of motion at all joints. Right LE immobilized UPPER EXTREMITIES: 2+ pulses, warm, well-perfused. No cyanosis. No peripheral edema. LOWER EXTREMITIES: 2+ pulses, warm, well-perfused. No peripheral edema. RLE placed in cast- unable to examine. Sensation intact. NEUROLOGICAL: Cranial nerves II-XII intact. PSYCHIATRIC: Cooperative. Good eye contact. Appropriate mood and affect. Laboratory Results - last 24 hr CBC,CMP WBC 6.8 K/mm3 (4.0-10.0) 07/26/19 06:42 RBC 4.35 M/mm3 (3.60-5.2) 07/26/19 06:42 Hgb 10.2 GM/dL (10.7-15.3) L 07/26/19 06:42 Hct 31.4 % (32.4-45.2) L 07/26/19 06:42 MCV 72.3 fl (80-96) L 07/26/19 06:42 MCH 23.5 pg (25.7-33.7) L 07/26/19 06:42 MCHC 32.5 g/dl (32.0-36.0) 07/26/19 06:42 RDW 14.5 % (11.6-15.6) 07/26/19 06:42 Plt Count 247 K/MM3 (134-434) 07/26/19 06:42 MPV 8.0 fl (7.5-11.1) 07/26/19 06:42 Absolute Neuts (auto) 5.8 K/mm3 (1.5-8.0) 07/25/19 20:55 Neutrophils % 71.7 % (42.8-82.8) 07/25/19 20:55 Lymphocytes % 17.5 % (8-40) 07/25/19 20:55 Monocytes % 9.5 % (3.8-10.2) 07/25/19 20:55 Eosinophils % 0.3 % (0-4.5) 07/25/19 20:55 Basophils % 1.0 % (0-2.0) 07/25/19 20:55 Nucleated RBC % 0 % (0-0) 07/25/19 20:55 Sodium 138 mmol/L (136-145) 07/26/19 06:42 Potassium 3.4 mmol/L (3.5-5.1) L 07/26/19 06:42 Chloride 100 mmol/L (98-107) 07/26/19 06:42 Carbon Dioxide 30 mmol/L (21-32) 07/26/19 06:42 Anion Gap 8 MMOL/L (8-16) 07/26/19 06:42 BUN 10.3 mg/dL (7-18) 07/26/19 06:42 Creatinine 1.0 mg/dL (0.55-1.3) 07/26/19 06:42 Est GFR (CKD-EPI)AfAm 62.93 07/26/19 06:42 Est GFR (CKD-EPI)NonAf 54.30 07/26/19 06:42 Random Glucose 125 mg/dL (74-106) H 07/26/19 06:42 Calcium 9.7 mg/dL (8.5-10.1) 07/26/19 06:42 Total Bilirubin 0.7 mg/dL (0.2-1) 07/25/19 20:55 AST 29 U/L (15-37) 07/25/19 20:55 ALT 25 U/L (13-61) 07/25/19 20:55 Alkaline Phosphatase 139 U/L (45-117) H 07/26/19 06:42 Total Protein 8.5 g/dl (6.4-8.2) H 07/25/19 20:55 Albumin 4.0 g/dl (3.4-5.0) 07/25/19 20:55 Active Medications Current Medications Atorvastatin Calcium (Lipitor -) 10 mg PO HS [facility] Last Admin: 07/26/19 21:22 Dose: 10 mg Chlorthalidone (Hygroton -) 25 mg PO DAILY [facility] Last Admin: 07/27/19 10:25 Dose: 25 mg Docusate Sodium (Colace -) 100 mg PO BID [facility] Last Admin: 07/27/19 10:25 Dose: 100 mg Heparin Sodium (Porcine) (Heparin -) 5,000 unit SQ ONCE ONE Stop: 07/27/19 22:01 Morphine Sulfate (Morphine Sulfate) 2 mg IVPUSH Q4H PRN PRN Reason: PAIN LEVEL 6-10 Nebivolol (Bystolic -) 5 mg PO DAILY [facility] Last Admin: 07/27/19 10:24 Dose: 5 mg Oxycodone HCl (Roxicodone -) 5 mg PO Q4H PRN PRN Reason: PAIN LEVEL 1-5 Last Admin: 07/27/19 07:48 Dose: 5 mg Fluticasone/Salmeterol (Advair 100mcg/50mcg -) 1 puff IH BID [facility] Last Admin: 07/27/19 10:24 Dose: 1 inh Tiotropium [place] (Spiriva Respimat) 2 puff IH DAILY [facility] Last Admin: 07/27/19 10:26 Dose: 2 puff Verapamil HCl (Calan Sr -) 240 mg PO DAILY [facility] Last Admin: 07/27/19 10:24 Dose: 240 mg Home Medications Medication Instructions Recorded Advair 250-50 Diskus 250 IH BID 07/26/19 Chlorthalidone 25 mg PO DAILY 07/26/19 Latanoprost 0.005% Eye Drops 0.005 drop OU DAILY 07/26/19 [Xalatan 0.005% Eye Drops -] Mirabegron [Myrbetriq] 50 mg PO DAILY 07/26/19 Nebivolol [Bystolic -] 5 mg PO DAILY 07/26/19 Pravastatin Sodium [Pravachol -] 40 mg PO DAILY 07/26/19 Risedronate Sodium 35 mg PO WEEKLY 07/26/19 Rivaroxaban [Xarelto] 15 mg PO DAILY 07/26/19 Tiotropium [place] [Spiriva] 18 mcg IH DAILY 07/26/19 Trospium Chloride 20 mg BID 07/26/19 Verapamil HCl ER [Calan Sr -] 240 mg PO DAILY 07/26/19 ASSESSMENT/PLAN: 78 y/o F, pmh of Afib on Xeralto, HTN, HLD, CVA in 2004, CHF(pt denies), lung disease(pt does not know the dx), ectopic , cataract surgery presents s /p fall. #Right ankle triimalleolar fracture X-ray evident for this finding Pt admitted to [facility] Immobilization- leg in cast Orthopedics consult- recom out pt management. Hold Xarelto. Pt going to surgery tomorrow- Right ankle ORIF Medicine cleared pt for surgery Cardiology clearance- pending Morphine IV and oxy for pain PT and PTT, INR- 1.31 today- r/p INR in the am type and screen- O positive Regular assessment of right foot pulses and sensation Pt NPO after Midnight Bowel regime #A-fib Hold xarelto #HTN cont home meds-verapamil, bystolic, chlorthalidone BP now 169/79 #CVA Hold xarelto #CHF consider ECHO Per pt, last ECHO was normal #Lung disease consider Xray contact Dr. Carrillo- health policy analyst- [facility] #DVT ppx heparin sq for now FEN monitor lytes NPO after Midnight except for PO meds Dispo: f/u inr, pain control, Hold xarelto, OR in am Visit type - Emergency Visit Emergency Visit: Yes ED Registration Date: 07/25/19 Care time: The patient presented to the Emergency Department on the above date and was hospitalized for further evaluation of their emergent condition. - New Patient This patient is new to me today: Yes Date on this admission: 07/28/19 - Critical Care Critical Care patient: No - Discharge Referral Referred to [facility] No ATTENDING PHYSICIAN STATEMENT I saw and evaluated the patient. I reviewed the resident's note and discussed the case with the resident. I agree with the resident's findings and plan as documented. SUBJECTIVE: OBJECTIVE: ASSESSMENT AND PLAN:
--- NOTE | 2019-07-27 17:19 | CON.CARD ---
Consult Consult Specialty:: Cardiology Referred by:: Hospitalist Reason for Consultation:: Cardiac evaluation and clearance - History of Present Illness Chief Complaint: Post fall resulting in right ankle fracture History of Present Illness: Patient is a 78 year old female with underlying history of HTN, hypercholesterolemia, CVA (2004) and PAF on DOAC/Xarelto who presented over the weekend after a fall resulting in right ankle fracture. She slopped and fell on the ground. She denies LOC. She denies hitting her head. Currently, she denies chest pain, shortness of breath or palpitations. She denies paroxysmal nocturnal dyspnea or orthopnea. She denies fever or chills. She denies nausea, vomiting, diarrhea or abdominal pain. She denies headache or lightheadedness. Xarelto has been stopped. She follows with Sampson Diaz MD in [place] who is an Electric Spot Welder/Senior Recruiter. 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 Cardio/Vascular: Yes: AFIB, HTN, Hyperlipdemia Reproductive: Yes: Ectopic Endocrine: No: Diabetes Mellitus - Past Surgical History Past Surgical History: Yes: Hernia Repair (5 times), Oopherectomy - Alcohol/Substance Use Hx Alcohol Use: No - Smoking History Smoking history: Never smoked Have you smoked in the past 12 months: No Home Medications - Allergies Allergies/Adverse Reactions: Allergies Allergy/AdvReac Type Severity Reaction Status Date / Time No Known Allergies Allergy Verified 07/25/19 19:30 - Home Medications Home Medications: Ambulatory Orders Advair 250-50 Diskus 250 IH BID 07/26/19 Chlorthalidone 25 mg PO DAILY 07/26/19 Latanoprost 0.005% Eye Drops [Xalatan 0.005% Eye Drops -] 0.005 drop OU DAILY Mirabegron [Myrbetriq] 50 mg PO DAILY 07/26/19 Nebivolol [Bystolic -] 5 mg PO DAILY 07/26/19 Pravastatin Sodium [Pravachol -] 40 mg PO DAILY 07/26/19 Risedronate Sodium 35 mg PO WEEKLY 07/26/19 Rivaroxaban [Xarelto] 15 mg PO DAILY 07/26/19 Tiotropium [place] [Spiriva] 18 mcg IH DAILY 07/26/19 Trospium Chloride 20 mg BID 07/26/19 Verapamil HCl ER [Calan Sr -] 240 mg PO DAILY 07/26/19 Family Medical History Family History: Denies Review of Systems - Review of Systems Constitutional: denies: Chills, Fever Cardiovascular: denies: Chest Pain, Palpitations, Shortness of Breath Respiratory: denies: Cough, Hemoptysis, Orthopnea, PND, SOB, SOB on Exertion, Wheezing Gastrointestinal: denies: Abdominal Pain, Constipation, Diarrhea, Melena, Nausea , Rectal Bleeding, Vomiting Genitourinary: denies: Dysuria, Hematuria Musculoskeletal: reports: Joint Pain. denies: Back Pain Neurological: denies: Dizziness, Headache, Seizure, Syncope Vital Signs: Vital Signs Temperature 98.1 F 07/27/19 14:33 Pulse Rate 74 07/27/19 14:33 Respiratory Rate 20 07/27/19 10:00 Blood Pressure 117/68 07/27/19 14:33 O2 Sat by Pulse Oximetry (%) 96 07/27/19 09:00 Eyes: Yes: PERRL HENT: Yes: Atraumatic Neck: Yes: Supple Respiratory: Yes: CTA Bilaterally Gastrointestinal: Yes: Normal Bowel Sounds, Soft. No: Tenderness Cardiovascular: Yes: Regular Rate and Rhythm JVD: No PMI: Non-Displaced Heart Sounds: Yes: S1, S2 Murmur: No: Systolic Murmur Extremities: Yes: Other (Cast on right ankle up to knee) Edema: No - Other Data Labs, Other Data: CBC, BMP 07/26/19 06:42 07/26/19 06:42 INR, PTT INR 1.31 (0.83-1.09) H 07/27/19 06:45 Laboratory Results - last 24 hr 07/27/19 07/27/19 06:45 13:05 PT with INR 15.50 H INR 1.31 H Blood Type O POSITIVE Antibody Screen Negative Sinus rhythm, APC, PVC, cannot rule out inferior infarct old Imaging - Results Chest X-ray: Report Reviewed (Atelectasis left base) X-ray: Report Reviewed (ankle Xray) EKG: Report Reviewed Problem List - Problems (1) HTN (hypertension) Code(s): I10 - ESSENTIAL (PRIMARY) HYPERTENSION (2) Hypercholesterolemia Code(s): E78.00 - PURE HYPERCHOLESTEROLEMIA, UNSPECIFIED (3) CVA (cerebral vascular accident) Code(s): I63.9 - CEREBRAL INFARCTION, UNSPECIFIED (4) PAF (paroxysmal atrial fibrillation) Code(s): I48.0 - PAROXYSMAL ATRIAL FIBRILLATION (5) Trimalleolar fracture of ankle, closed Code(s): S82.853A - DISPLACED TRIMALLEOLAR FRACTURE OF UNSP LOWER LEG, INIT Qualifiers: Encounter type: initial encounter Laterality: right Qualified Code(s): S82.851A - Displaced trimalleolar fracture of right lower leg, initial encounter for closed fracture Assessment/Plan 1. Mechanical fall resulting in right ankle fracture 2. HTN 3. Hypercholesterolemia 4. PAF currently in sinus rhythm 5. History of CVA PLAN: 1. No absolute contraindication for surgery in view of absence of ischemic symptoms, decompensated congestive heart failure or malignant arrhythmia 2. Xarelto has been held in preparation for surgery , but should be restarted afterwards 3. Continue current cardiac medications including Bystolic 5 mg QD, Chlorthalidone 25 mg QD and Verapamil 240 mg QD. Continue Lipitor 10 mg QHS Follow up with Dr. Sampson Diaz upon discharge Thank you for consultation request Shine Hodge MD
[2019-07-27] MEDS: ATORVASTATIN CA 10 MG TABLET (FP) PO SCH (22:09)
[2019-07-28 08:00] LABS: BASO % 0.8 % (0-2.0); EOS % 1.1 % (0-4.5); HEMOGLOBIN 9.7 GM/dL (10.7-15.3); LYMPH % 35.4 % (8-40); MCH 23.3 pg (25.7-33.7); MCHC 32.2 g/dl (32.0-36.0); MEAN CELL VOLUME 72.3 fl (80-96); MEAN PLT VOLUME 8.1 fl (7.5-11.1); MONO % 13.5 % (3.8-10.2); NEUT % 49.2 % (42.8-82.8); PLATELET COUNT 233 K/MM3 (134-434); RBC 4.15 M/mm3 (3.60-5.2); RDW 14.2 % (11.6-15.6)
[2019-07-28 08:07] LABS: INR 1.17 (0.83-1.09); PROTHROMBIN TIME (PATIENT) 13.8 SEC (9.7-13.0)
[2019-07-28 08:23] LABS: ALBUMIN 3.4 g/dl (3.4-5.0); BILIRUBIN,TOTAL 0.7 mg/dL (0.2-1); BLOOD UREA NITROGEN 13.4 mg/dL (7-18); POTASSIUM 3.7 mmol/L (3.5-5.1); TOT PROT 7.6 g/dl (6.4-8.2)
[2019-07-28] MEDS ORDERED: PT OWN MED DRAWER 7, Y5N ONE (10:19)
[2019-07-28] MEDS: FLUTICASONE/SALMETEROL 100 MCG/50 MCG DISKUS IH SCH ×2 (10:30→21:07)
[2019-07-28] MEDS: NEBIVOLOL 5 MG TABLET (FP) PO SCH (10:31)
[2019-07-28] MEDS: VERAPAMIL HCL 240 MG E.R. TABLET PO SCH (10:32)
[2019-07-28] MEDS: DOCUSATE SODIUM 100 MG CAPSULE (FP) PO SCH ×2 (10:32→21:05)
[2019-07-28] MEDS: CHLORTHALIDONE 25 MG TABLET PO SCH (10:32)
[2019-07-28] MEDS: TIOTROPIUM BROMIDE 2.5 MCG (SPIRIVA) RESPIMAT INHALER IH SCH (10:32)
--- NOTE | 2019-07-28 11:47 | PN ---
Progress Note, Physician Chief Complaint: Not in distress History of Present Illness: Patient was seen and examined. Awake and alert. Chart was reviewed Denies chest pain, SOB or palpitations - Current Medication List Current Medications: Active Medications Atorvastatin Calcium (Lipitor -) 10 mg PO HS [facility] Last Admin: 07/27/19 22:09 Dose: 10 mg Chlorthalidone (Hygroton -) 25 mg PO DAILY [facility] Last Admin: 07/28/19 10:32 Dose: Not Given Docusate Sodium (Colace -) 100 mg PO BID [facility] Last Admin: 07/28/19 10:32 Dose: Not Given Morphine Sulfate (Morphine Sulfate) 2 mg IVPUSH Q4H PRN PRN Reason: PAIN LEVEL 6-10 Nebivolol (Bystolic -) 5 mg PO DAILY [facility] Last Admin: 07/28/19 10:31 Dose: 5 mg Oxycodone HCl (Roxicodone -) 5 mg PO Q4H PRN PRN Reason: PAIN LEVEL 1-5 Last Admin: 07/27/19 22:07 Dose: 5 mg Fluticasone/Salmeterol (Advair 100mcg/50mcg -) 1 puff IH BID [facility] Last Admin: 07/28/19 10:30 Dose: 1 inh Tiotropium [place] (Spiriva Respimat) 2 puff IH DAILY [facility] Last Admin: 07/28/19 10:32 Dose: 2 puff Verapamil HCl (Calan Sr -) 240 mg PO DAILY [facility] Last Admin: 07/28/19 10:32 Dose: 240 mg - Objective Vital Signs: Vital Signs Temperature 98.7 F 07/28/19 09:30 Pulse Rate 100 H 07/28/19 10:00 Respiratory Rate 20 07/28/19 10:00 Blood Pressure 141/86 07/28/19 10:00 O2 Sat by Pulse Oximetry (%) 97 07/28/19 09:00 Eyes: Yes: PERRL HENT: Yes: Atraumatic Neck: Yes: Supple Cardiovascular: Yes: Regular Rate and Rhythm, S1, S2 Respiratory: Yes: CTA Bilaterally Gastrointestinal: Yes: Normal Bowel Sounds, Soft. No: Tenderness Extremities: Yes: Other (cast on right calf) Edema: No Labs: CBC, BMP 07/28/19 06:45 07/28/19 06:45 INR, PTT INR 1.17 (0.83-1.09) H 07/28/19 06:45 Problem List - Problems (1) HTN (hypertension) Code(s): I10 - ESSENTIAL (PRIMARY) HYPERTENSION (2) Hypercholesterolemia Code(s): E78.00 - PURE HYPERCHOLESTEROLEMIA, UNSPECIFIED (3) CVA (cerebral vascular accident) Code(s): I63.9 - CEREBRAL INFARCTION, UNSPECIFIED (4) PAF (paroxysmal atrial fibrillation) Code(s): I48.0 - PAROXYSMAL ATRIAL FIBRILLATION (5) Trimalleolar fracture of ankle, closed Code(s): S82.853A - DISPLACED TRIMALLEOLAR FRACTURE OF UNSP LOWER LEG, INIT Qualifiers: Encounter type: initial encounter Laterality: right Qualified Code(s): S82.851A - Displaced trimalleolar fracture of right lower leg, initial encounter for closed fracture Assessment/Plan 1. Mechanical fall resulting in right ankle fracture 2. HTN 3. Hypercholesterolemia 4. PAF currently in sinus rhythm 5. History of CVA PLAN: 1. No absolute contraindication for surgery in view of absence of ischemic symptoms, decompensated congestive heart failure or malignant arrhythmia 2. Xarelto has been held in preparation for surgery. Restart Xarelto once done with surgery 3. Continue current cardiac medications including Bystolic 5 mg QD, Chlorthalidone 25 mg QD and Verapamil 240 mg QD. Continue Lipitor 10 mg QHS Follow up with Dr. Sampson Diaz upon discharge Shine Hodge MD
[2019-07-28] MEDS ORDERED: ACETAMINOPHEN 1000 MG/100 ML VIAL (NON FORMULARY) IVPB ONE (13:00)
--- NOTE | 2019-07-28 13:41 | PN ---
Physical Exam: SUBJECTIVE: Patient seen and examined 78 y/o F, pmh of Afib on Xeralto, HTN, HLD, CVA in 2004, CHF(pt denies), lung disease(pt does not know the dx), ectopic , cataract surgery presents s /p fall admitted for right ankle fx. Pt is asymptomatic, afebrile, w/o any issues or c/o. Pt has moderate pain on her leg but otherwise stable. No overnight events. Nervous about her surgery. Denies f/c/n/v, chest pain, sob. OBJECTIVE: Vital Signs Last Vital Signs Temp Pulse Resp BP Pulse Ox 98.7 F 100 H 20 141/86 97 07/28/19 09:30 07/28/19 10:00 07/28/19 10:00 07/28/19 10:00 07/28/19 09:00 GENERAL: Awake, alert, and fully oriented, in no acute distress. EYES: Pupils equal, round and reactive to light, extraocular movements intact, EARS, NOSE, THROAT: oropharynx clear without exudates. Moist mucous membranes. NECK: Normal range of motion, supple LUNGS: Breath sounds equal. No wheezes, and Mild-mod crackles appreciated b/l . HEART: Regular rate and irregular rhythm, normal S1 and S2 without murmur, rub or gallop. ABDOMEN: Soft, nontender, not distended, normoactive bowel sounds, no guarding, no rebound, no masses. MUSCULOSKELETAL: Normal range of motion at all joints. Right LE immobilized UPPER EXTREMITIES: 2+ pulses, warm, well-perfused. No cyanosis. No peripheral edema. LOWER EXTREMITIES: 2+ pulses, warm, well-perfused. No peripheral edema. RLE placed in cast- unable to examine. Sensation intact. NEUROLOGICAL: Cranial nerves II-XII intact. PSYCHIATRIC: Cooperative. Good eye contact. Appropriate mood and affect. Laboratory Results - last 24 hr CBC,CMP WBC 7.0 K/mm3 (4.0-10.0) 07/28/19 06:45 RBC 4.15 M/mm3 (3.60-5.2) 07/28/19 06:45 Hgb 9.7 GM/dL (10.7-15.3) L 07/28/19 06:45 Hct 30.0 % (32.4-45.2) L 07/28/19 06:45 MCV 72.3 fl (80-96) L 07/28/19 06:45 MCH 23.3 pg (25.7-33.7) L 07/28/19 06:45 MCHC 32.2 g/dl (32.0-36.0) 07/28/19 06:45 RDW 14.2 % (11.6-15.6) 07/28/19 06:45 Plt Count 233 K/MM3 (134-434) 07/28/19 06:45 MPV 8.1 fl (7.5-11.1) 07/28/19 06:45 Absolute Neuts (auto) 3.4 K/mm3 (1.5-8.0) 07/28/19 06:45 Neutrophils % 49.2 % (42.8-82.8) D 07/28/19 06:45 Lymphocytes % 35.4 % (8-40) D 07/28/19 06:45 Monocytes % 13.5 % (3.8-10.2) H 07/28/19 06:45 Eosinophils % 1.1 % (0-4.5) D 07/28/19 06:45 Basophils % 0.8 % (0-2.0) 07/28/19 06:45 Nucleated RBC % 0 % (0-0) 07/28/19 06:45 Sodium 136 mmol/L (136-145) 07/28/19 06:45 Potassium 3.7 mmol/L (3.5-5.1) 07/28/19 06:45 Chloride 99 mmol/L (98-107) 07/28/19 06:45 Carbon Dioxide 28 mmol/L (21-32) 07/28/19 06:45 Anion Gap 9 MMOL/L (8-16) 07/28/19 06:45 BUN 13.4 mg/dL (7-18) 07/28/19 06:45 Creatinine 1.0 mg/dL (0.55-1.3) 07/28/19 06:45 Est GFR (CKD-EPI)AfAm 62.93 07/28/19 06:45 Est GFR (CKD-EPI)NonAf 54.30 07/28/19 06:45 Random Glucose 111 mg/dL (74-106) H 07/28/19 06:45 Calcium 9.0 mg/dL (8.5-10.1) 07/28/19 06:45 Total Bilirubin 0.7 mg/dL (0.2-1) 07/28/19 06:45 AST 22 U/L (15-37) 07/28/19 06:45 ALT 19 U/L (13-61) 07/28/19 06:45 Alkaline Phosphatase 127 U/L (45-117) H 07/28/19 06:45 Total Protein 7.6 g/dl (6.4-8.2) 07/28/19 06:45 Albumin 3.4 g/dl (3.4-5.0) 07/28/19 06:45 Active Medications Current Medications Atorvastatin Calcium (Lipitor -) 10 mg PO HS [facility] Last Admin: 07/27/19 22:09 Dose: 10 mg Chlorthalidone (Hygroton -) 25 mg PO DAILY [facility] Last Admin: 07/28/19 10:32 Dose: Not Given Docusate Sodium (Colace -) 100 mg PO BID [facility] Last Admin: 07/28/19 10:32 Dose: Not Given Morphine Sulfate (Morphine Sulfate) 2 mg IVPUSH Q4H PRN PRN Reason: PAIN LEVEL 6-10 Nebivolol (Bystolic -) 5 mg PO DAILY [facility] Last Admin: 07/28/19 10:31 Dose: 5 mg Oxycodone HCl (Roxicodone -) 5 mg PO Q4H PRN PRN Reason: PAIN LEVEL 1-5 Last Admin: 07/27/19 22:07 Dose: 5 mg Fluticasone/Salmeterol (Advair 100mcg/50mcg -) 1 puff IH BID [facility] Last Admin: 07/28/19 10:30 Dose: 1 inh Tiotropium [place] (Spiriva Respimat) 2 puff IH DAILY [facility] Last Admin: 07/28/19 10:32 Dose: 2 puff Verapamil HCl (Calan Sr -) 240 mg PO DAILY [facility] Last Admin: 07/28/19 10:32 Dose: 240 mg Home Medications Medication Instructions Recorded Advair 250-50 Diskus 250 IH BID 07/26/19 Chlorthalidone 25 mg PO DAILY 07/26/19 Latanoprost 0.005% Eye Drops 0.005 drop OU DAILY 07/26/19 [Xalatan 0.005% Eye Drops -] Mirabegron [Myrbetriq] 50 mg PO DAILY 07/26/19 Nebivolol [Bystolic -] 5 mg PO DAILY 07/26/19 Pravastatin Sodium [Pravachol -] 40 mg PO DAILY 07/26/19 Risedronate Sodium 35 mg PO WEEKLY 07/26/19 Rivaroxaban [Xarelto] 15 mg PO DAILY 07/26/19 Tiotropium [place] [Spiriva] 18 mcg IH DAILY 07/26/19 Trospium Chloride 20 mg BID 07/26/19 Verapamil HCl ER [Calan Sr -] 240 mg PO DAILY 07/26/19 ASSESSMENT/PLAN: 78 y/o F, pmh of Afib on Xeralto, HTN, HLD, CVA in 2004, CHF(pt denies), lung disease(pt does not know the dx), ectopic , cataract surgery presents s /p fall. #Right ankle triimalleolar fracture X-ray evident for this finding Pt admitted to [facility] Immobilization- leg in cast Orthopedics consult- recom out pt management. Hold Xarelto. Pt going to surgery today- Right ankle ORIF Medicine cleared pt for surgery Cardiology cleared pt for surgery Morphine IV, oxy, IV tylenol for pain INR- 1.17 today- r/p INR in the am type and screen- O positive Regular assessment of right foot pulses and sensation Pt NPO, change status post op surgery Bowel regime Start Xarelto in the am if Hg is stable #A-fib Hold xarelto- ask orthopedic if she can resume post op. #HTN cont home meds-verapamil, bystolic, chlorthalidone BP now 141/86 #CVA Hold xarelto #CHF consider ECHO Per pt, last ECHO was normal #Lung disease consider Xray contact Dr. Carrillo- inclusion paraeducator- [facility] #DVT ppx heparin sq for now FEN monitor lytes Dispo: f/u inr, pain control, Hold xarelto, OR today Visit type - Emergency Visit Emergency Visit: Yes ED Registration Date: 07/25/19 Care time: The patient presented to the Emergency Department on the above date and was hospitalized for further evaluation of their emergent condition. - New Patient This patient is new to me today: Yes Date on this admission: 07/29/19 - Critical Care Critical Care patient: No - Discharge Referral Referred to [facility] No ATTENDING PHYSICIAN STATEMENT I saw and evaluated the patient. I reviewed the resident's note and discussed the case with the resident. I agree with the resident's findings and plan as documented. SUBJECTIVE: OBJECTIVE: ASSESSMENT AND PLAN:
[2019-07-28] MEDS ORDERED: LIDOCAINE 1%-EPI 1:100,000 30 ML MDV IJ ONE (13:49)
[2019-07-28] MEDS ORDERED: BUPIVACAINE HCL/PF 0.5% (5 MG/ML) 30 ML VIAL IJ ONE (13:50)
[2019-07-28] MEDS ORDERED: ROPIVACAINE HCL 0.5% 30ML VIAL ONE ×3 (14:08→15:11)
[2019-07-28] MEDS ORDERED: MIDAZOLAM HCL 2 MG/2 ML SINGLE DOSE VIAL ONE ×2 (14:09)
[2019-07-28] MEDS ORDERED: LACTATED RINGERS SOLUTION 1,000 ML IV SCH (14:15)
[2019-07-28] MEDS ORDERED: PROPOFOL 20 ML ONE ×2 (14:24)
[2019-07-28] MEDS ORDERED: SUCCINYLCHOLINE CHLORIDE 200 MG/10 ML SYRINGE ONE (14:24)
[2019-07-28] MEDS ORDERED: ROCURONIUM BROMIDE 50 MG/5 ML SYRINGE ONE (14:24)
[2019-07-28] MEDS ORDERED: ePHEDrine SULFATE 50 MG/1 ML AMPULE ONE (14:27)
[2019-07-28] MEDS ORDERED: EPHEDRINE SULFATE/0.9% NACL/PF 50 MG/10 ML SYRINGE NR ONE (14:27)
[2019-07-28] MEDS ORDERED: ceFAZolin SODIUM 1 GM VIAL IVPB ONE (15:30)
--- NOTE | 2019-07-28 16:43 | OP ---
Operative Note - Note: Operative Date: 07/28/19 ([facility]) Pre-Operative Diagnosis: right ankle fx Operation: right ankle ORIF Post-Operative Diagnosis: Same as Pre-op Surgeon: Cesar Mendoza Sports Analyst: Luis Angel Nelson PA-C) Anesthesiologist/SENIOR ASSISTANT MANAGER: Mateusz Carter Anesthesia: General, Local Estimated Blood Loss (mls): 50
[2019-07-28] MEDS ORDERED: MORPHINE SULFATE 2 MG/ML VIAL IVPUSH PRN (16:58)
--- NOTE | 2019-07-28 17:46 | PN ---
Teaching Attending Note Name of Resident: Elmer Gates ATTENDING PHYSICIAN STATEMENT I saw and evaluated the patient. I reviewed the resident's note and discussed the case with the resident. I agree with the resident's findings and plan as documented. SUBJECTIVE: seen around 10:30. No fever or chills. pain in Ankle was tolerable. No SOB or CP OBJECTIVE: NAD, awake, alert and cooperative MMM, no facial droop Lungs: bibasilar crackles CV: regular. 2/6 SM at base ABd: obese, soft, NT, ND , NL BS Ext: R ankle and leg in a cast. nl sensation in R toes and nl movement of toes. DP 2+ . LLE with no edema or erythema Assessment/Plan: 78 y/o lady with h/o A fib , ILD, HTN, CVA, HLP, who presented a fter a mechanical fall and was found to have acute R distal Tib/Fib Fx . 1- Mechanical fall 2- Acute R distal Tib/Fib Fx. 3- H/o HTN 4- h/o ILD 5- Elevated R hemidiaphragm 6- H/o A fib 7- Elevated ALk phos; likely due to Fx Plan : - s/p ORIF today - pain control - will resume xarelto tomorrow - bowel regimen - PT eval - f/u with pulm as out pt for elevated hemidiaphragm and ILD SCDs on L side
[2019-07-28] MEDS: LACTATED RINGERS SOLUTION 1,000 ML IV SCH (19:06)
[2019-07-28] MEDS: oxyCODONE HCL 5 MG TABLET PO PRN (21:05)
[2019-07-28] MEDS ORDERED: ATORVASTATIN CA 10 MG TABLET (FP) PO SCH (22:00)
[2019-07-28] MEDS ORDERED: CEFAZOLIN 2 GM/D5W 2 GM/50 ML ML IVPB SCH (22:30)
[2019-07-28] MEDS: CEFAZOLIN 2 GM/D5W 2 GM/50 ML ML IVPB SCH (23:07)
[2019-07-29] MEDS: ACETAMINOPHEN 325 MG TABLET (FP) PO PRN ×2 (02:17→16:06)
[2019-07-29] MEDS: oxyCODONE HCL 5 MG TABLET PO PRN ×2 (05:33→11:18)
[2019-07-29] MEDS: CEFAZOLIN 2 GM/D5W 2 GM/50 ML ML IVPB SCH (06:40)
[2019-07-29] MEDS: LACTATED RINGERS SOLUTION 1,000 ML IV SCH (06:45)
--- NOTE | 2019-07-29 07:50 | OP ---
DATE OF OPERATION: 07/28/2019 PREOPERATIVE DIAGNOSIS: Displaced right bimalleolar ankle fracture. POSTOPERATIVE DIAGNOSIS: Displaced right bimalleolar ankle fracture. PROCEDURE PERFORMED: Open reduction and internal fixation of right bimalleolar ankle fracture. SURGICAL ATTENDING: Yuliya Mendoza MD FIRST ASSISTANTS: Luis Angel Nelson M.D., and NGUYEN Olivo ANESTHESIA: Regional and general. CLOSURE: A [employer] lateral distal plate with cannulated screw medially, 0 Vicryl for fascia, 2-0 subcuticular and carol to skin. ESTIMATED BLOOD LOSS: Approximately 100 mL. COMPLICATIONS: None. CONDITION: Stable condition. DESCRIPTION OF PROCEDURE: The patient was taken to the operating room on July 28, 2019. Regional and general anesthesia was administered by the anesthesiologist. IV Kefzol was administered prophylactically prior to the case. A well-padded pneumatic tourniquet placed on the right proximal calf, away from the fibular head. The right lower extremity was prepped and draped in the usual sterile fashion. An 8-10 cm longitudinal incision over the distal fibula was incised. Hemostasis was achieved using Bovie cautery. This was done after the leg was exsanguinated with an Esmarch bandage and tourniquet was inflated to 275 mmHg. Sharp dissection was carried full-thickness down to the level of the fracture. Curettes and irrigation were used to clean up the fracture. There was marked comminution and very osteoporotic bone. There was a large anterior fragment as well as the cortex just peeling off the rest of the bone around the fracture. Therefore, no lag attempts were made. Traction and internal rotation were used to reduce the fracture. A Roc lateral distal periarticular plate was then clamped to the bone and pinned distally and proximally with traction, obtaining an anatomical reduction. Placing screws was fraught with a great deal of difficulty, as none of the screws (proximally or distally) achieved any real bite in the bone, and the plate pulled off from the bone after screw fixation. Therefore, I decided to use syndesmosis screws from the fibula into the tibia to gain fixation. With the ankle in neutral and internal rotation, 3 screws were placed through the plate, through the fibula, through the tibia, biting all 4 cortices, which cinched the plate to the bone and acted as a buttress, to reduce the comminuted and osteoporotic distal fibula fracture. Two locking screws were placed distally and one proximally as adjuvant fixation to lock the plate into the bone. Next, our attention was directed medially. A 4-cm curved longitudinal incision over the medial malleolus was performed. Hemostasis was achieved with Bovie cautery. Sharp dissection was full-thickness down to the fracture. Curettes and irrigation were used to clean out the fracture. Again, very osteoporotic bone was found. A 22 reduction clamp was used to hold the fracture. One guidewire was placed biting the posterior distal tibial cortex. A 46-mm screw was used with a washer and achieved somewhat compression of the fracture but a very tenuous bite. There was no real room for a 2nd screw and the wire achieved no real adjuvant fixation, so it was removed. X-ray in the AP, mortise and lateral views revealed excellent reduction of the fracture. Both incisions were copiously irrigated. The fascia was closed with 0 Vicryl, 2-0 subcutaneous and carol for skin. A sterile pressure dressing followed by a were applied. The patient was awakened from anesthesia and transferred to the recovery room in stable condition. No complications. Estimated blood loss was less than 100 mL. The tourniquet was deflated at about 1 hour's time. YULIYA MENDOZA M.D. [id number]
[2019-07-29 08:11] LABS: BASO % 0.6 % (0-2.0); EOS % 0.4 % (0-4.5); HEMOGLOBIN 9.1 GM/dL (10.7-15.3); LYMPH % 14.9 % (8-40); MCH 23.7 pg (25.7-33.7); MCHC 32.6 g/dl (32.0-36.0); MEAN CELL VOLUME 72.6 fl (80-96); MEAN PLT VOLUME 7.9 fl (7.5-11.1); MONO % 15.8 % (3.8-10.2); NEUT % 68.3 % (42.8-82.8); PLATELET COUNT 227 K/MM3 (134-434); RBC 3.86 M/mm3 (3.60-5.2); RDW 14.6 % (11.6-15.6); WHITE BLOOD COUNT 8.9 K/mm3 (4.0-10.0)
[2019-07-29 08:52] LABS: ALBUMIN 3.3 g/dl (3.4-5.0); BILIRUBIN,TOTAL 0.5 mg/dL (0.2-1); BLOOD UREA NITROGEN 13.8 mg/dL (7-18); CALCIUM 8.5 mg/dL (8.5-10.1); CREATININE 1.1 mg/dL (0.55-1.3); POTASSIUM 3.5 mmol/L (3.5-5.1); TOT PROT 7.4 g/dl (6.4-8.2)
[2019-07-29] MEDS ORDERED: ACETAMINOPHEN 1000 MG/100 ML VIAL (NON FORMULARY) IVPB ONE (09:15)
[2019-07-29] MEDS: DOCUSATE SODIUM 100 MG CAPSULE (FP) PO SCH (09:17)
[2019-07-29] MEDS: FLUTICASONE/SALMETEROL 100 MCG/50 MCG DISKUS IH SCH (09:18)
--- NOTE | 2019-07-29 09:27 | PN ---
Teaching Attending Note Name of Resident: Elmer Gates ATTENDING PHYSICIAN STATEMENT I saw and evaluated the patient. I reviewed the resident's note and discussed the case with the resident. I agree with the resident's findings and plan as documented. SUBJECTIVE: No fever or chills. pain in Ankle was tolerable. No SOB or CP OBJECTIVE: Vital Signs Temperature 99.6 F 07/29/19 06:00 Pulse Rate 104 H 07/29/19 06:00 Respiratory Rate 20 07/29/19 06:00 Blood Pressure 127/91 07/29/19 06:00 O2 Sat by Pulse Oximetry (%) 99 07/28/19 21:00 GENERAL: The patient is awake, alert, and fully oriented, in no acute distress. HEAD: Normal with no signs of trauma. EYES: PERRL, extraocular movements intact, sclera anicteric, conjunctiva clear. . ENT: Ears normal, oropharynx clear without exudates, moist mucous membranes. NECK: Trachea midline, full range of motion, supple. LUNGS: Breath sounds equal, clear to auscultation bilaterally, no wheezes, no crackles, no accessory muscle use. HEART: Regular rate and rhythm, S1, S2 positive, 2/6 SM at base, no rub or gallop. ABDOMEN: Soft, nontender, nondistended, normoactive bowel sounds, no guarding, no rebound, no hepatosplenomegaly, no masses. EXTREMITIES: 2+ pulses, warm, well-perfused, R ankle and leg in a cast. LLE with no edema or erythema NEUROLOGICAL: Cranial nerves II through XII grossly intact. Normal speech, gait not observed. PSYCH: Normal mood, normal affect. SKIN: Warm, dry, normal turgor, no rashes or lesions noted CBCD WBC 8.9 K/mm3 (4.0-10.0) 07/29/19 07:10 RBC 3.86 M/mm3 (3.60-5.2) 07/29/19 07:10 Hgb 9.1 GM/dL (10.7-15.3) L 07/29/19 07:10 Hct 28.0 % (32.4-45.2) L 07/29/19 07:10 MCV 72.6 fl (80-96) L 07/29/19 07:10 MCHC 32.6 g/dl (32.0-36.0) 07/29/19 07:10 RDW 14.6 % (11.6-15.6) 07/29/19 07:10 Plt Count 227 K/MM3 (134-434) 07/29/19 07:10 MPV 7.9 fl (7.5-11.1) 07/29/19 07:10 CMP Sodium 133 mmol/L (136-145) L 07/29/19 07:10 Potassium 3.5 mmol/L (3.5-5.1) 07/29/19 07:10 Chloride 96 mmol/L (98-107) L 07/29/19 07:10 Carbon Dioxide 27 mmol/L (21-32) 07/29/19 07:10 Anion Gap 9 MMOL/L (8-16) 07/29/19 07:10 BUN 13.8 mg/dL (7-18) 07/29/19 07:10 Creatinine 1.1 mg/dL (0.55-1.3) 07/29/19 07:10 Random Glucose 141 mg/dL (74-106) H 07/29/19 07:10 Calcium 8.5 mg/dL (8.5-10.1) 07/29/19 07:10 Total Bilirubin 0.5 mg/dL (0.2-1) 07/29/19 07:10 AST 31 U/L (15-37) 07/29/19 07:10 ALT 17 U/L (13-61) 07/29/19 07:10 Alkaline Phosphatase 117 U/L (45-117) 07/29/19 07:10 Total Protein 7.4 g/dl (6.4-8.2) 07/29/19 07:10 Albumin 3.3 g/dl (3.4-5.0) L 07/29/19 07:10 Current Medications Generic Name Dose Route Start Last Admin Trade Name Freq PRN Reason Stop Dose Admin Acetaminophen 650 mg 07/29/19 02:07 07/29/19 02:17 Tylenol - PO 650 mg Q6H PRN Administration Fever Or Pain Atorvastatin Calcium 10 mg 07/28/19 22:00 07/28/19 21:05 Lipitor - PO 10 mg HS AMBER Administration Chlorthalidone 25 mg 07/29/19 10:00 07/29/19 09:17 [place] - PO 25 mg DAILY AMBER Administration Docusate Sodium 100 mg 07/28/19 22:00 07/29/19 09:17 Colace - PO 100 mg BID AMBER Administration Lactated Ringer's 1,000 mls @ 75 mls/hr 07/28/19 16:58 07/29/19 06:45 Lactated Ringers Solution IV 75 mls/hr ASDIR AMBER Administration Morphine Sulfate 2 mg 07/28/19 16:58 07/29/19 06:40 Morphine Sulfate IVPUSH 2 mg Q4H PRN Administration PAIN LEVEL 6-10 Nebivolol 5 mg 07/29/19 10:00 07/29/19 09:17 Bystolic - PO 5 mg DAILY AMBER Administration Oxycodone HCl 5 mg 07/28/19 16:58 07/29/19 05:33 Roxicodone - PO 5 mg Q4H PRN Administration PAIN LEVEL 1-5 Rivaroxaban 15 mg 07/29/19 18:00 Xarelto PO DAILY@1800 AMBER Fluticasone/Salmeterol 1 puff 07/28/19 22:00 07/29/19 09:18 Advair 100mcg/50mcg - IH 1 inhaler BID [facility] Administration Tiotropium [place] 2 puff 07/29/19 10:00 07/29/19 09:19 Spiriva Respimat IH 2 puff DAILY AMBER Administration Verapamil HCl 240 mg 07/29/19 10:00 07/29/19 09:18 Calan Sr - PO 240 mg DAILY AMBER Administration Home Medications Medication Instructions Recorded Advair 250-50 Diskus 250 IH BID 07/26/19 Chlorthalidone 25 mg PO DAILY 07/26/19 Latanoprost 0.005% Eye Drops 0.005 drop OU DAILY 07/26/19 [Xalatan 0.005% Eye Drops -] Mirabegron [Myrbetriq] 50 mg PO DAILY 07/26/19 Nebivolol [Bystolic -] 5 mg PO DAILY 07/26/19 Pravastatin Sodium [Pravachol -] 40 mg PO DAILY 07/26/19 Risedronate Sodium 35 mg PO WEEKLY 07/26/19 Rivaroxaban [Xarelto] 15 mg PO DAILY 07/26/19 Tiotropium [place] [Spiriva] 18 mcg IH DAILY 07/26/19 Trospium Chloride 20 mg BID 07/26/19 Verapamil HCl ER [Calan Sr -] 240 mg PO DAILY 07/26/19 Assessment/Plan: 78 y/o lady with h/o A fib , ILD, HTN, CVA, HLP, who presented a fter a mechanical fall and was found to have acute R distal Tib/Fib Fx . # s/p Mechanical fall # Acute R distal Tib/Fib Fx s/p ORIF , pain control # H/o HTN # h/o ILD # Elevated R hemidiaphragm # H/o A fib # Elevated ALk phos; likely due to Fx f/u with pulm as out pt for elevated hemidiaphragm and ILD DVT :SCDs ; resume xarelto , discharge to rehab.
[2019-07-29 09:41] LABS: INR 1.18 (0.83-1.09); PROTHROMBIN TIME (PATIENT) 13.9 SEC (9.7-13.0)
--- NOTE | 2019-07-29 09:58 | PN ---
Progress Note, Physician History of Present Illness: POD #1 right ankle ORIF, reports post-op pain, denies chest pain, dyspnea, near or true syncope, palpitations. - Current Medication List Current Medications: Active Medications Acetaminophen (Tylenol -) 650 mg PO Q6H PRN PRN Reason: Fever Or Pain Last Admin: 07/29/19 02:17 Dose: 650 mg Atorvastatin Calcium (Lipitor -) 10 mg PO HS [facility] Last Admin: 07/28/19 21:05 Dose: 10 mg Chlorthalidone ([place]ro[place] -) 25 mg PO DAILY [facility] Last Admin: 07/29/19 09:17 Dose: 25 mg Docusate Sodium (Colace -) 100 mg PO BID [facility] Last Admin: 07/29/19 09:17 Dose: 100 mg Lactated Ringer's (Lactated Ringers Solution) 1,000 mls @ 75 mls/hr IV ASDIR [facility] Last Admin: 07/29/19 06:45 Dose: 75 mls/hr Morphine Sulfate (Morphine Sulfate) 2 mg IVPUSH Q4H PRN PRN Reason: PAIN LEVEL 6-10 Last Admin: 07/29/19 06:40 Dose: 2 mg Nebivolol (Bystolic -) 5 mg PO DAILY [facility] Last Admin: 07/29/19 09:17 Dose: 5 mg Oxycodone HCl (Roxicodone -) 5 mg PO Q4H PRN PRN Reason: PAIN LEVEL 1-5 Last Admin: 07/29/19 05:33 Dose: 5 mg Rivaroxaban (Xarelto) 15 mg PO DAILY@1800 [facility] Fluticasone/Salmeterol (Advair 100mcg/50mcg -) 1 puff IH BID [facility] Last Admin: 07/29/19 09:18 Dose: 1 inhaler Tiotropium [place] (Spiriva Respimat) 2 puff IH DAILY [facility] Last Admin: 07/29/19 09:19 Dose: 2 puff Verapamil HCl (Calan Sr -) 240 mg PO DAILY [facility] Last Admin: 07/29/19 09:18 Dose: 240 mg - Objective Vital Signs: Vital Signs Temperature 99.6 F 07/29/19 06:00 Pulse Rate 104 H 07/29/19 06:00 Respiratory Rate 20 07/29/19 06:00 Blood Pressure 127/91 07/29/19 06:00 O2 Sat by Pulse Oximetry (%) 99 07/28/19 21:00 Constitutional: Yes: No Distress, Calm Neck: Yes: Supple Cardiovascular: Yes: Regular Rate and Rhythm Respiratory: Yes: Regular, CTA Bilaterally Gastrointestinal: Yes: Normal Bowel Sounds, Soft Edema: No Labs: CBC, BMP 07/29/19 07:10 07/29/19 07:10 INR, PTT INR 1.18 (0.83-1.09) H 07/29/19 08:58 Problem List - Problems (1) Chronic anticoagulation Code(s): Z79.01 - 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 OF ANTICOAGULANTS (2) CVA (cerebral vascular accident) Code(s): I63.9 - CEREBRAL INFARCTION, UNSPECIFIED Qualifiers: CVA mechanism: unspecified Qualified Code(s): I63.9 - Cerebral infarction, unspecified (3) HTN (hypertension) Code(s): I10 - ESSENTIAL (PRIMARY) HYPERTENSION Qualifiers: Hypertension type: essential hypertension Qualified Code(s): I10 - Essential (primary) hypertension (4) Hypercholesterolemia Code(s): E78.00 - PURE HYPERCHOLESTEROLEMIA, UNSPECIFIED (5) PAF (paroxysmal atrial fibrillation) Code(s): I48.0 - PAROXYSMAL ATRIAL FIBRILLATION (6) Trimalleolar fracture of ankle, closed Code(s): S82.853A - DISPLACED TRIMALLEOLAR FRACTURE OF UNSP LOWER LEG, INIT Qualifiers: Encounter type: initial encounter Laterality: right Qualified Code(s): S82.851A - Displaced trimalleolar fracture of right lower leg, initial encounter for closed fracture Assessment/Plan 1. POD #1 right ankle ORIF 2. HTN 3. Hypercholesterolemia 4. PAF currently in sinus rhythm on Xarelto 5. History of CVA PLAN: 1. Resumed Xarelto 15 qd as post-op hemostasis assured 2. Continue current cardiac medications including Bystolic 5 mg QD, Chlorthalidone 25 mg QD, Verapamil 240 mg QD and Lipitor 10 mg QHS 3. Analgesia as needed, mobilize as tolerated Follow up with Dr. Sampson Diaz upon discharge
[2019-07-29] MEDS ORDERED: NEBIVOLOL 5 MG TABLET (FP) PO SCH (10:00)
[2019-07-29] MEDS ORDERED: VERAPAMIL HCL 240 MG E.R. TABLET PO SCH (10:00)
[2019-07-29] MEDS ORDERED: CHLORTHALIDONE 25 MG TABLET PO SCH (10:00)
[2019-07-29] MEDS ORDERED: TIOTROPIUM BROMIDE 2.5 MCG (SPIRIVA) RESPIMAT INHALER IH SCH (10:00)
[2019-07-29] MEDS ORDERED: RIVAROXABAN 15 MG TABLET PO SCH ×2 (10:00→18:00)
--- NOTE | 2019-07-29 11:32 | DS ---
Physical Exam: SUBJECTIVE: Patient seen and examined. Pt is asymptomatic, afebrile, w/o any issues or c/o. Pt has moderate pain on her leg but otherwise stable. No overnight events. Nervous about her surgery. Denies f/c/n/v, chest pain, sob. OBJECTIVE: Vital Signs Period Temp Pulse Resp BP Sys/[place] Pulse Ox Last 24 Hr 97.7 F-100.2 F 59-104 14-21 104-145/50-91 95-100 PHYSICAL EXAM GENERAL: Awake, alert, and fully oriented, in no acute distress. EYES: Pupils equal, round and reactive to light, extraocular movements intact, EARS, NOSE, THROAT: oropharynx clear without exudates. Moist mucous membranes. NECK: Normal range of motion, supple LUNGS: Breath sounds equal. No wheezes, and Mild-mod crackles appreciated b/l . HEART: Regular rate and irregular rhythm, normal S1 and S2 without murmur, rub or gallop. ABDOMEN: Soft, nontender, not distended, normoactive bowel sounds, no guarding, no rebound, no masses. MUSCULOSKELETAL: Normal range of motion at all joints. Right LE immobilized UPPER EXTREMITIES: 2+ pulses, warm, well-perfused. No cyanosis. No peripheral edema. LOWER EXTREMITIES: 2+ pulses, warm, well-perfused. No peripheral edema. RLE placed in cast- unable to examine. Sensation intact. ROM intact. S/p surgery NEUROLOGICAL: Cranial nerves II-XII intact. PSYCHIATRIC: Cooperative. Good eye contact. Appropriate mood and affect. LABS Laboratory Results - last 24 hr CBC,CMP WBC 8.9 K/mm3 (4.0-10.0) 07/29/19 07:10 RBC 3.86 M/mm3 (3.60-5.2) 07/29/19 07:10 Hgb 9.1 GM/dL (10.7-15.3) L 07/29/19 07:10 Hct 28.0 % (32.4-45.2) L 07/29/19 07:10 MCV 72.6 fl (80-96) L 07/29/19 07:10 MCH 23.7 pg (25.7-33.7) L 07/29/19 07:10 MCHC 32.6 g/dl (32.0-36.0) 07/29/19 07:10 RDW 14.6 % (11.6-15.6) 07/29/19 07:10 Plt Count 227 K/MM3 (134-434) 07/29/19 07:10 MPV 7.9 fl (7.5-11.1) 07/29/19 07:10 Absolute Neuts (auto) 6.1 K/mm3 (1.5-8.0) 07/29/19 07:10 Neutrophils % 68.3 % (42.8-82.8) D 07/29/19 07:10 Lymphocytes % 14.9 % (8-40) D 07/29/19 07:10 Monocytes % 15.8 % (3.8-10.2) H 07/29/19 07:10 Eosinophils % 0.4 % (0-4.5) 07/29/19 07:10 Basophils % 0.6 % (0-2.0) 07/29/19 07:10 Nucleated RBC % 0 % (0-0) 07/29/19 07:10 Sodium 133 mmol/L (136-145) L 07/29/19 07:10 Potassium 3.5 mmol/L (3.5-5.1) 07/29/19 07:10 Chloride 96 mmol/L (98-107) L 07/29/19 07:10 Carbon Dioxide 27 mmol/L (21-32) 07/29/19 07:10 Anion Gap 9 MMOL/L (8-16) 07/29/19 07:10 BUN 13.8 mg/dL (7-18) 07/29/19 07:10 Creatinine 1.1 mg/dL (0.55-1.3) 07/29/19 07:10 Est GFR (CKD-EPI)AfAm 56.08 07/29/19 07:10 Est GFR (CKD-EPI)NonAf 48.39 07/29/19 07:10 Random Glucose 141 mg/dL (74-106) H 07/29/19 07:10 Calcium 8.5 mg/dL (8.5-10.1) 07/29/19 07:10 Total Bilirubin 0.5 mg/dL (0.2-1) 07/29/19 07:10 AST 31 U/L (15-37) 07/29/19 07:10 ALT 17 U/L (13-61) 07/29/19 07:10 Alkaline Phosphatase 117 U/L (45-117) 07/29/19 07:10 Total Protein 7.4 g/dl (6.4-8.2) 07/29/19 07:10 Albumin 3.3 g/dl (3.4-5.0) L 07/29/19 07:10 Current Medications Acetaminophen (Tylenol -) 650 mg PO Q6H PRN PRN Reason: Fever Or Pain Last Admin: 07/29/19 02:17 Dose: 650 mg Atorvastatin Calcium (Lipitor -) 10 mg PO HS [facility] Last Admin: 07/28/19 21:05 Dose: 10 mg Docusate Sodium (Colace -) 100 mg PO TID AMBER Lactated Ringer's (Lactated Ringers Solution) 1,000 mls @ 75 mls/hr IV ASDIR [facility] Last Admin: 07/29/19 06:45 Dose: 75 mls/hr Morphine Sulfate (Morphine Sulfate) 2 mg IVPUSH Q4H PRN PRN Reason: PAIN LEVEL 6-10 Last Admin: 07/29/19 06:40 Dose: 2 mg Nebivolol (Bystolic -) 5 mg PO DAILY [facility] Last Admin: 07/29/19 09:17 Dose: 5 mg Oxycodone HCl (Roxicodone -) 5 mg PO Q4H PRN PRN Reason: PAIN LEVEL 1-5 Last Admin: 07/29/19 11:18 Dose: 5 mg Rivaroxaban (Xarelto) 15 mg PO DAILY@1800 [facility]BER Fluticasone/Salmeterol (Advair 100mcg/50mcg -) 1 puff IH BID [facility] Last Admin: 07/29/19 09:18 Dose: 1 inhaler Tiotropium [place] (Spiriva Respimat) 2 puff IH DAILY [facility] Last Admin: 07/29/19 09:19 Dose: 2 puff Verapamil HCl (Calan Sr -) 240 mg PO DAILY [facility] Last Admin: 07/29/19 09:18 Dose: 240 mg Home Medications Medication Instructions Recorded Advair 250-50 Diskus 250 IH BID 07/26/19 Latanoprost 0.005% Eye Drops 0.005 drop OU DAILY 07/26/19 [Xalatan 0.005% Eye Drops -] Mirabegron [Myrbetriq] 50 mg PO DAILY 07/26/19 Nebivolol [Bystolic -] 5 mg PO DAILY 07/26/19 Pravastatin Sodium [Pravachol -] 40 mg PO DAILY 07/26/19 Risedronate Sodium 35 mg PO WEEKLY 07/26/19 Rivaroxaban [Xarelto] 15 mg PO DAILY 07/26/19 Tiotropium [place] [Spiriva] 18 mcg IH DAILY 07/26/19 Trospium Chlor[place] 20 mg BID 07/26/19 Verapamil HCl ER [Calan Sr -] 240 mg PO DAILY 07/26/19 Acetaminophen [Tylenol -] 650 mg PO Q6H #30 tablet 07/29/19 Cholecalciferol (Vitamin D3) 2,000 unit PO DAILY #30 capsule 07/29/19 [D-1999] oxyCODONE HCL [Roxicodone -] 5 mg PO Q4H PRN #30 tablet MDD 4 07/29/19 HOSPITAL COURSE: Date of Admission:07/25/19 78 y/o F, pmh of Afib on Xeralto, HTN, HLD, CVA in 2004, CHF(pt denies), lung disease(pt does not know the dx), ectopic , cataract surgery presents s /p fall admitted for right ankle fx. Pt was worked up with x rays of the foot, which was consistent with a trimalleolar fx, that required ORIF. Pt underwent surgery under the care of Dr. Mendoza, and was stable s/p surgery. Pt was managed with pain medications. Pts xarelto was held prior to surgery and restarted s/p surgery. Cardiac medications were also continued including Bystolic 5 mg QD, QD , Verapamil 240 mg QD and Lipitor 10 mg QHS. Chlorthalidone 25 mg was held due to hyponatremia, sodium at 133. Pt was discharged on pain medication and advised to f/u. Advised to Follow up with Dr. Sampson Diaz upon discharge, her pcp. EKG : sinus, Q waves in inferrior leads, non specific TWI. qtc 455, L axis. No prior to compare X ray- Trimalleolar fx #Right ankle trimalleolar fracture X-ray evident for this finding Immobilization- leg in cast Orthopedics consult- recom out pt management. Hold Xarelto. Pt going to surgery today- Right ankle ORIF Medicine cleared pt for surgery Cardiology cleared pt for surgery Morphine IV, oxy, IV tylenol for pain INR- 1.17 today- r/p INR in the am type and screen- O positive Regular assessment of right foot pulses and sensation Pt NPO, change status post op surgery Bowel regime Start Xarelto in the am if Hg is stable Date of Discharge: 07/29/19 Minutes to complete discharge: 35 Discharge Summary Problems reviewed: Yes Reason For Visit: CLOSED TRIMALLEOLAR FRACTURE,INABILITY TO Condition: Improved - Instructions Diet, Activity, Other Instructions: You were admitted at the hospital for a right ankle fracture from a fall that required you to have surgery done. While you were here, we evaluated you with lab work, blood work, imaging including x rays of your foot which showed you had a fracture of your right ankle. You underwent surgery for repair of your fractured ankle. We treated you with pain medication to control your pain. We recommend you to attend rehabilitation to strengthen your leg and improve mobility after undergoing surgery. To relieve your pain, please take Tylenol 650 by mouth 4 times a day Please stop taking your Chlorthalidone medication for now and follow up with your primary care physician to discuss further. Please take all your medication as prescribed Please follow up with your primary care physician in 1 week. Follow up with your orthopedic surgeon, Dr. Cesar Mendoza, in 1 week Return to the emergency room, if you experience any unbearable pain, shortness of breath, chest pain, nausea, vomiting and worsening of your condition. Referrals: Cesar Mendoza MD [Staff Physician] - 1 Week Segundo Jacques MD [Staff Physician] - 1 Week Disposition: INTERMEDIATE FACILITY - Home Medications Comprehensive Discharge Medication List: Ambulatory Orders Advair 250-50 Diskus 250 IH BID 07/26/19 Latanoprost 0.005% Eye Drops [Xalatan 0.005% Eye Drops -] 0.005 drop OU DAILY Mirabegron [Myrbetriq] 50 mg PO DAILY 07/26/19 Nebivolol [Bystolic -] 5 mg PO DAILY 07/26/19 Pravastatin Sodium [Pravachol -] 40 mg PO DAILY 07/26/19 Risedronate Sodium 35 mg PO WEEKLY 07/26/19 Rivaroxaban [Xarelto] 15 mg PO DAILY 07/26/19 Tiotropium [place] [Spiriva] 18 mcg IH DAILY 07/26/19 Trospium Chloride 20 mg BID 07/26/19 Verapamil HCl ER [Calan Sr -] 240 mg PO DAILY 07/26/19 Acetaminophen [Tylenol -] 650 mg PO Q6H #30 tablet 07/29/19 Cholecalciferol (Vitamin D3) [D-2000] 2,000 unit PO DAILY #30 capsule 07/29/19 oxyCODONE HCL [Roxicodone -] 5 mg PO Q4H PRN #30 tablet MDD 4 07/29/19 This patient is new to me today: Yes Date on this admission: 07/29/19 Emergency Visit: Yes ED Registration Date: 07/25/19 Care time: The patient presented to the Emergency Department on the above date and was hospitalized for further evaluation of their emergent condition. Critical Care patient: No - Discharge Referral Referred to [facility] No ATTENDING PHYSICIAN STATEMENT I saw and evaluated the patient. I reviewed the resident's note and discussed the case with the resident. I agree with the resident's findings and plan as documented. SUBJECTIVE: OBJECTIVE: ASSESSMENT AND PLAN:
[2019-07-29] MEDS ORDERED: DOCUSATE SODIUM 100 MG CAPSULE (FP) PO SCH (14:00)
[2019-07-29 15:10] VITALS: BP 126/75; PULSE 73; TEMP 99.5
[2019-07-30 11:57] VITALS: BMI 31.1
== END 2019-07-29 17:27 | DRG 493 ==
LOC: JER 19:10 → JERBED 21:40 → J6S 07-26 00:02
PROVIDERS: ADMIT Internal Medicine; ATTEND Internal Medicine
PROC: 0SSF04Z Reposition Right Ankle Joint with Internal Fixation Device, Open Approach (ICD-10-PCS; principal; 2019-07-28 14:30)
DX: S82.851A Displaced trimalleolar fracture of right lower leg, initial encounter for closed fracture (principal); E87.1 Hypo-osmolality and hyponatremia; J98.11 Atelectasis; I48.0 Paroxysmal atrial fibrillation; E66.9 Obesity, unspecified; Z68.31 Body mass index [BMI] 31.0-31.9, adult; E78.5 Hyperlipidemia, unspecified; J44.9 Chronic obstructive pulmonary disease, unspecified; Z86.73 Personal history of transient ischemic attack (TIA), and cerebral infarction without residual deficits; Z79.01 Long term (current) use of anticoagulants; Y93.89 Activity, other specified; W01.0XXA Fall on same level from slipping, tripping and stumbling without subsequent striking against object, initial encounter; Y92.098 Other place in other non-institutional residence as the place of occurrence of the external cause; Y99.8 Other external cause status
CPT/HCPCS: 36415; 71045-TC-FY; 73562-TC-RT-FY; 73590-TC-RT-FY; 73610-TC-RT-FY; 73630-TC-RT-FY; 76000-TC-FY; 80048; 80053; 84075; 85025; 85027; 85610; 85730; 86850; 86900; 86901; 93005; 93010; 94010; 94760; 97116-GP; 97162-GP; 99283-25; J0131; J1644; J7030

== ENCOUNTER 2021-03-02 06:50 | Emergency (ER) | payer OTHER, BC ==
[2021-03-02 07:01] VITALS: TEMP 98.2; BMI 30.6
[2021-03-02 08:31] LABS: BASO % 1.1 % (0-2.0); EOS % 1.1 % (0-4.5); HEMATOCRIT 30.6 % (32.4-45.2); HEMOGLOBIN 10.1 GM/dL (10.7-15.3); LYMPH % 37.3 % (8-40); MCH 23.7 pg (25.7-33.7); MEAN CELL VOLUME 71.7 fl (80-96); MEAN PLT VOLUME 7.8 fl (7.5-11.1); MONO % 14.7 % (3.8-10.2); NEUT % 45.8 % (42.8-82.8); PLATELET COUNT 251 K/MM3 (134-434); RBC 4.27 M/mm3 (3.60-5.2); RDW 15.1 % (11.6-15.6); WHITE BLOOD COUNT 5.7 K/mm3 (4.0-10.0)
[2021-03-02 08:57] LABS: ALBUMIN 3.6 g/dl (3.4-5.0); BLOOD UREA NITROGEN 12.8 mg/dL (7-18); CALCIUM 10.1 mg/dL (8.5-10.1); MAGNESIUM 1.9 mg/dL (1.8-2.4)
[2021-03-02 09:00] LABS: CREATININE 1.1 mg/dL (0.55-1.3)
[2021-03-02 09:02] LABS: BILIRUBIN,TOTAL 0.2 mg/dL (0.2-1); TOT PROT 8.2 g/dl (6.4-8.2)
[2021-03-02 11:16] VITALS: BP 135/70; PULSE 74
== END 2021-03-02 10:55 | disposition home or self-care (01) ==
LOC: JER 06:50
DX: K64.3 Fourth degree hemorrhoids (principal)
CPT/HCPCS: 36415; 80053; 82272; 83735; 85025; 93005; 93010; 99284-25

== ENCOUNTER 2023-10-16 18:53 | Emergency (ER) | payer OTHER, BC ==
[2023-10-16 19:14] VITALS: BP 131/82; PULSE 64; RESP 20; BMI 27.1
[2023-10-16] MEDS ORDERED: TRANEXAMIC ACID 1000 MG/10 ML VIAL IVPUSH ONE (20:29)
[2023-10-16] MEDS ORDERED: TRANEXAMIC ACID 1000 MG/10 ML VIAL ONE (20:38)
[2023-10-16] MEDS ORDERED: LIDOCAINE 1%/EPI 1:100000 (20 ML MULTI DOSE VIAL) IJ ONE (22:11)
[2023-10-16] MEDS ORDERED: LIDOCAINE 1%/EPI 1:100000 (50 ML MULTI DOSE VIAL) ONE (22:21)
[2023-10-16] MEDS ORDERED: LIDOCAINE HCL 4% TOPICAL SOLN (50 ML/BOTTLE) MM ONE (22:34)
[2023-10-16] MEDS ORDERED: LIDOCAINE HCL 2% JELLY 11 ML TP ONE ×2 (22:37→22:56)
== END 2023-10-17 00:02 | disposition home or self-care (01) ==
LOC: JER 18:53
PROC: 3E033NZ Introduction of Analgesics, Hypnotics, Sedatives into Peripheral Vein, Percutaneous Approach (ICD-10-PCS; principal; 2023-10-16)
DX: K08.89 Other specified disorders of teeth and supporting structures (principal); K06.8 Other specified disorders of gingiva and edentulous alveolar ridge; Z20.822 Contact with and (suspected) exposure to COVID-19
CPT/HCPCS: 87635; 99284-25